=== PATIENT | male | born 1960 | race Caucasian/White ===

== ENCOUNTER → 2022-08-07 | Outpatient (CLI) | payer OTHER, SELFPAY ==
[2022-08-07 12:55] LABS: Absolute Neutrophil Count 4.6 X10^3/uL (2.0-7.7); Basophil# 0.07 X10^3/uL; Basophil% 0.9 % (0-1); Eosinophil# 0.38 X10^3/uL; Eosinophils% 4.8 % (0-5); Hemoglobin 15.2 g/dL (13.0-16.5); Lymphocyte % 27.5 % (19-41); Mean Corp Hgb Conc 32.3 g/dL (32-36); Mean Corpuscular Hgb 29.8 pg (27.0-32.0); Mean Corpuscular Volume 92.2 fL (80-94); Monocyte# 0.75 X10^3/uL; Monocyte% 9.4 % (0-10); NRBC Flagged by Analyzer 0 % (0-5); Neutrophil # 4.57 X10^3/uL (2.7-7.7); Platelet Count 308 K/mm3 (150-450); RBC Distribution Width CV 13.1 % (11.6-14.6); RBC Distribution Width SD 44.1 fl (35.1-43.9)
[2022-08-07 13:36] LABS: AST(SGOT) 24 U/L (15-37); Alanine Aminotransfer ALT/SGPT 45 U/L (16-61); Albumin, Serum 3.6 g/dL (3.2-5.0); Alkaline Phosphatase 53 U/L (45-117); Anion Gap 4 (5-15); BUN 15 mg/dL (7-18); BUN/Creat Ratio 18.1 RATIO (10-20); Chloride 109 mmol/L (98-107); Cholesterol 166 mg/dL (200); Creatinine, Serum 0.83 mg/dL (0.70-1.30); EST Glomerular Filtration Rate 100 mL/min (>60); Est Glom Filt Rate - Afr Amer 121 mL/min (>60); Globulin 3.6 g/dL (2.2-4.2); Glucose 102 mg/dL (74-106); High Density Lipoprotein 64 mg/dL; PSA,Total - Annual Screen 1.77 ng/mL (0.00-4.00); Protein, Total 7.2 g/dL (6.4-8.2); Sodium Level 139 mmol/L (136-145); Triglycerides 44 mg/dL; Very Low Density Lipoprotein 9 mg/dL (5-40)
== END | disposition home or self-care (01) ==
PROVIDERS: PCP Family Medicine; Referring Provider Family Medicine; Visit Provider Family Medicine
DX: I10 Essential (primary) hypertension (principal); Z12.5 Encounter for screening for malignant neoplasm of prostate
CPT/HCPCS: 36415; 80053; 80061; 84153; 85025; G0103

== ENCOUNTER → 2024-09-08 | Outpatient (CLI) | payer OTHER, SELFPAY ==
--- NOTE | 2024-09-08 12:36 | RAD_ITS ---
PROCEDURE: CHEST PA AND LATERAL 09/08/2024 REASON FOR EXAM: RIGHT SIDE RIB PAIN TECHNIQUE: Frontal and lateral views of the chest. COMPARISON: None available FINDINGS: The lungs are clear. Pulmonary vascularity appears within limits. No pleural effusion. The cardiac and mediastinal contours appear within limits. Visualized osseous structures appear within limits. RAD/Chest PA and Lateral IMPRESSION: No evidence of acute disease. Reading Location: [id number]
[2024-09-08 15:24] LABS: Absolute Lymphocyte Count 2.17 X10^3/uL (0.83-4.51); Absolute Neutrophil Count 6.3 X10^3/uL (2.0-7.7); Basophil# 0.06 X10^3/uL; Basophil% 0.6 % (0-1); Eosinophil# 0.25 X10^3/uL; Eosinophils% 2.6 % (0-5); Lymphocyte # 2.17 X10^3/ul (0.83-4.51); Lymphocyte % 22.6 % (19-41); Mean Corp Hgb Conc 33.3 g/dL (32-36); Mean Corpuscular Volume 89.9 fL (80-94); Mean Platelet Vol. 9.9 fl (6.2-12.0); Monocyte% 8.3 % (0-10); NRBC Flagged by Analyzer 0 % (0-5); Neutrophil # 6.26 X10^3/uL (2.7-7.7); Neutrophil % 65.4 % (47-70); Platelet Count 328 K/mm3 (150-450); RBC Distribution Width CV 13.1 % (11.6-14.6); RBC Distribution Width SD 43.3 fl (35.1-43.9); Red Blood Count 5.34 M/mm3 (4.6-6.2); White Blood Count 9.6 K/mm3 (4.4-11.0)
[2024-09-08 16:09] LABS: ALB/GLOB Ratio 1.6 RATIO (0.9-2.4); AST(SGOT) 20 U/L (<=37); Alanine Aminotransfer ALT/SGPT 32 U/L (<=46); Albumin, Serum 4.5 g/dL (3.4-4.8); Alkaline Phosphatase 77 U/L (40-129); Anion Gap 13 (5-15); BUN 16 mg/dL (4-19); BUN/Creat Ratio 19.1 RATIO (10-20); Calcium,Total 9.6 mg/dL (7.6-11.0); Carbon Dioxide 23.8 mmol/L (21.0-32.0); Chloride 103 mmol/L (98-108); Cholesterol 195 mg/dL (<=200); Creatinine, Serum 0.86 mg/dL (0.70-1.20); EST Glomerular Filtration Rate 97 (>60); Globulin 2.7 g/dL (2.2-4.2); Glucose 89 mg/dL (70-99); High Density Lipoprotein 63 mg/dL; Low Density Lipoprotein Calc. 118 mg/dL; PSA,Total - Annual Screen 2.06 ng/mL (0.02-4.00); Potassium 3.4 mmol/L (3.3-5.1); Protein, Total 7.2 g/dL (5.9-8.4); Sodium Level 141 mmol/L (133-145); Total Bilirubin 0.54 mg/dL (0.00-1.30); Triglycerides 73 mg/dL; Very Low Density Lipoprotein 15 mg/dL (5-40); cholesterol:hdl ratio screen 3.11
== END | disposition home or self-care (01) ==
PROVIDERS: PCP Family Medicine; Referring Provider Family Medicine; Visit Provider Family Medicine
DX: R07.81 Pleurodynia (principal); I10 Essential (primary) hypertension; Z12.5 Encounter for screening for malignant neoplasm of prostate
CPT/HCPCS: 36415; 71046; 80053; 80061; 84153; 85025; G0103

== ENCOUNTER → 2024-09-15 | Outpatient (CLI) | payer OTHER, SELFPAY ==
--- NOTE | 2024-09-15 10:23 | US_ITS ---
PROCEDURE: ABDOMEN LIMITED 09/15/2024 REASON FOR EXAM: RUQ PAIN TECHNIQUE: Complete abdominal ultrasound deras-scale images with color doppler. PATIENT PREPARATION: Per protocol COMPARISON: None. FINDINGS: The liver measures 16.3 cm with increased echogenicity. Left hepatic lobe 2.1 x 2.2 x 1.8 cm cysts. Hepatopetal flow. Gallbladder measures 8.6 cm with multiple mobile echogenic gallstones. Negative sonographic Rodriguez's sign. Trace pericholecystic fluid. Common bile duct measures 8 mm. The visualized pancreas is within normal limits. Right kidney measures 13.6 cm. Interpolar 9 mm and 7 mm calculi. US/Abdomen Limited IMPRESSION: Dilated common bile duct. Consider MRCP if clinically indicated. Cholelithiasis and trace pericholecystic fluid but a negative sonographic Jorge y's sign. If there is clinical concern for acute cholecystitis, consider HIDA scan. Hepatic steatosis. Right kidney nonobstructive nephrolithiasis. Left hepatic lobe cyst. Reading Location: [place] [id number]
--- OUTSIDE RECORDS SUMMARY | 2024-09-15 20:41 | XMS RPT_ITS | CCD ---
Author Organization [facility] Inform ion Partnership [facility] Care Team Providers Care Manager Pulmonary Name Role Phone Anel MOREIRAN.PACKAGE LINE RELIEF OPERATOR, DNP, Ant Primary Care Provider Buddy Posadas DO Primary Care Provider Dr. Buddy Posadas DO Primary Care Provider [phone] Dr. Xena Adrian MD Attending Provider [phone] Dr. Xena Adrian MD Referring Provider [phone] Xena Adrian Referring Unavailable Xena Adrian Attending Unavailable Buddy Posadas Primary Care Unavailable Buddy Posadas Primary Care Unavailable Xena Adrian Referring Unavailable Xena Adrian Attending Unavailable Allergies Allergy Classification Reported Allergen(s) Allergy Type Date of Onset Reaction(s) Facility (1 source) amLODIPine Drug Allergy 02-01-2020 [facility] (1 source) Doxazosin Drug Allergy 11-10-2019 [facility] (1 source) Lisinopril Drug Allergy 11-10-2019 [facility] (1 source) Penicillins Drug Allergy 05-14-2017 [facility] (2 sources) Penicillins Allergy to substance 01-28-[address] [facility] (1 source) Penicillins Drug allergy (disorder) 01-28-2016 [facility] Repository Medications Current Medications Medication Drug Class(es) Dates Sig (Normalized) Sig (Original) 24 hr buPROPion hydrochloride 300 mg extended release oral tablet (3 sources) Aminoketone Start: 01-28-20 16 take 1 tablet by mouth once daily Bupropion Hcl 300 MG tablet extended release 24 hr Active 300 mg PO DAILY January 28, 2016 12:00am Comment on above: Take 1 tablet by elsi th once daily. diazePAM 5 mg oral tablet (2 sources) Benzodiazepine Start: 01-28-20 16 take 1 tablet by mouth every eight hours as needed Diazepam 5 MG tablet Active 5 mg PO EVERY 8 HOURS as needed for Vertigo January 28, 2016 12:00am hydroCHLOROthiazide 25 mg oral tablet (2 sources) Thiazide Diuretic Start: 12-03-19 21 End: 11-21-19 23 take 1 tablet by mouth once daily hydroCHLOROthiazide (HYDRODIURIL, ESIDRIX) 25 mg tablet Indications: Benign hypertension take 1 tablet by mouth once daily 90 tablet 0 11/20/2021 11/20/2022 Active Comment on above: take 1 tablet by elsi th once daily Take 1 tablet by elsi th once daily. LORazepam 1 mg oral tablet (2 sources) Benzodiazepine Start: 01-28-20 16 take 1 tablet by mouth at bedtime Lorazepam 1 MG tablet Active 1 mg PO AT BEDTIME January 28, 2016 12:00am losartan potassium 25 mg oral tablet (1 source) Angiotensin 2 Receptor Nicholas Start: 12-03-19 End: 12-03-19 22 take 1 tablet by mouth once daily losartan (COZAAR) 25 mg tablet Indications: Benign hypertension Take 1 tablet by mouth once daily. 90 tablet 3 12/02/2020 12/02/2021 Active Comment on above: Take 1 tablet by elsi th once daily. ondansetron 4 mg disintegrating oral tablet (4 sources) Serotonin-3 Receptor Antagonist Start: 01-28-20 take 1 tablet by mouth every eight hours as needed for nausea Ondansetron 4 MG tablet Active 4 mg PO EVERY 8 HOURS NEEDED as needed for Nausea January 28, 2016 12:00am Start: 01-28-2016 Ondansetron 4 MG tablet Active 8 mg PO NEEDED as needed for Nausea January 28, 2016 12:00am Start: 01-28-2016 Ondansetron Ac tive 8 MG PO NEEDED January 28, 2016 12:00am Completed/Discontinued Medications Medication Drug Class(es) Dates Sig (Normalized) Sig (Original) azelaic acid 0.15 mg/mg topical gel (1 source) Start: 07-28-2020 Azelaic Acid 15 % gel Indications: Rosacea Apply to affected area twice daily. 50 g 3 07/28/2020 Active Comment on above: Apply to affected ar ea twice daily. clotrimazole 10 mg/ml topical cream (1 source) Azole Antifungal Start: 07-28-2020 clotrimazole (LOTRIMIN, CLOTRIM) 1 % cream Apply to affected area twice daily. 24 g 1 07/28/2020 Active Comment on above: Apply to affected ar ea twice daily. CPAP (1 source) Start: 07-14-2020 CPAP Indications: HUMA (obstructive sleep apnea) Initiate Auto PAP @ 5-20 cm of water with humidification. Mask (per patient preference) optional chin strap (if indicated) , filters, tubing, humidifier and lifetime supplies. 1 Device 0 07/14/2020 Active Comment on above: Initiate Auto PAP @ 5-20 cm of water with humidification. Mask (per patient preference) optional chin strap (if indicated) , filters, tubing, humidifier and lifetime supplies. ibuprofen 200 mg oral tablet (1 source) Nonsteroidal Anti-inflammatory Drug ibuprofen (MOTRIN IB) 200 mg ORAL tablet Take 200 mg by mouth. 0 Active Comment on above: Take 200 mg by mouth . promethazine hydrochloride 25 mg oral tablet (1 source) Phenothiazine Start: 11-10-2019 take 1 tablet by mouth every eight hours as needed promethazine (PHENERGAN) 25 mg tablet Take 1 tablet by mouth every 8 hours as needed for Nausea/Vomiting. 20 tablet 1 11/10/2019 Active Comment on above: Take 1 tablet by elsi th every 8 hours as needed for Nausea/Vomiting. Problems Active Problems Problem Classification Problem Date Documented Da te Episodic/Chronic Abdominal pain (1 source) Right upper quadrant pain; Translations: [Right upper quadrant pain] Onset: 09-10-2024 Episodic Anxiety disorders (2 sources) Anxiety; Translations: [Anxiety disorder, unspecified] Onset: 12-06-2017 12-06-2017 Chronic Essential hypertension (2 sources) Benign hypertension; Translations: [Essential (primary) hypertension] Onset: 05-14-2017 Chronic Hyperplasia of prostate (1 source) Benign prostatic hypertrophy with outflow obstruction; Translations: [Benign prostatic hyperplasia with lower urinary tract symptoms] Onset: 05-14-2017 05-14-2017 Chronic Miscellaneous mental health disorders (1 source) Chronic insomnia; Translations: [Psychophysiologic insomnia] Onset: 02-20-2018 02-20-2018 Chronic Other inflammatory condition of skin (1 source) Rosacea; Translations: [Rosacea, unspecified] Onset: 10-10-2018 10-10-2018 Chronic Other lower respiratory disease (1 source) Pleurodynia; Translations: [Pleurodynia] Onset: 09-12-2024 Episodic Residual codes; unclassified (1 source) Obstructive sleep apnea syndrome; Translations: [Obstructive sleep apnea (adult) (pediatric)] Onset: 02-20-2018 02-20-2018 Chronic Past or Other Problems Problem Classification Problem Date Documented Da te Episodic/Chronic Other and unspecified benign neoplasm (1 source) Benign neoplasm of rectum and anal canal; Translations: [Benign neoplasm of rectum] Onset: 06-11-2011 06-11-2011 Episodic Other connective tissue disease (1 source) Dupuytren's contracture; Translations: [Palmar fascial fibromatosis [Dupuytren]] Onset: 07-28-2020 07-28-2020 Episodic Other screening for suspected conditions (not mental disorders or infectious disease) (1 source) Patient encounter status; Translations: [Encounter for screening for malignant neoplasm of colon] Onset: 05-14-2011 05-14-2011 Episodic Other skin disorders (1 source) Subcutaneous nodule; Translations: [Localized swelling, mass and lump, unspecified] Onset: 04-23-2011 04-23-2011 Episodic Results Test Name Value Interpretation Reference Range Facility Absolute lymphocyte countOrd ered By: Xena Adrian on 09-08-2024 Lymphocytes Auto (Unsp spec) [#/Vol] 2.17 10*3/uL 0.83-4.51 [facility] Absolute neutrophil countOrd ered By: Xena Adrian on 09-08-2024 Neutrophils (Bld) [#/Vol] 6.3 10*3/uL 2.0-7.7 [facility] Anion gap in Serum or Plasma Ordered By: Xena Adrian on 09-08-2024 Anion gap [Moles/Vol] 13 mmol/L -15 [facility] Automated lymphocyte count a s percentage of total leukocytesOrdered By: Xena Adrian on 09-08-2024 Lymphocytes/100 WBC Auto (Unsp spec) 22.6 % 19-41 [facility] BUN/creatinine ratioOrdered By: Xena Adrian on 09-08-2024 Urea nitrogen/Creatinine [Mass ratio] 19.1 mg/mg 10-20 [facility] Basophil percentageOrdered B y: Xnea Adrian on 09-08-2024 Basophils/100 WBC (Bld) 0.6 % 0-1 [facility] Bilirubin, totalOrdered By: Xena Adrian on 09-08-2024 Bilirubin [Mass/Vol] 0.54 mg/dL 0.00-1.30 [facility] CBC W/Diff, Automatedon 08-14 Absolute Lymph 2.17 X10 3/uL Normal 0.83-4.51 [facility] Comment on above: Performed By: #### L 501.9910, L100.0100, L500.4050, L500.4100 #### [facility] [address] [place], [address] Absolute Neut 6.3 X10 3/uL Normal 2.0-7.7 [facility] Comment on above: Performed By: #### L 501.9910, L100.0100, L500.4050, L500.4100 #### [facility] [address] [place], [address] Basophils/100 WBC (Bld) 0.6 % Normal 0-1 [facility] Comment on above: Performed By: #### L 501.9910, L100.0100, L500.4050, L500.4100 #### [facility] [address] [place], [address] Eosinophils/100 WBC (Bld) 2.6 % Normal 0-5 [facility] Comment on above: Performed By: #### L 501.9910, L100.0100, L500.4050, L500.4100 #### [facility] [address] [place], [address] Erythrocyte distribution width (RBC) [Ratio] 13.1 % Normal 11.6-14.6 [facility] Comment on above: Performed By: #### L 501.9910, L100.0100, L500.4050, L500.4100 #### [facility] [address] [place], [address] Hematocrit (Bld) [Volume fraction] 48.0 % Normal 40-54 [facility] Comment on above: Performed By: #### L 501.9910, L100.0100, L500.4050, L500.4100 #### [facility] [address] [place], [address] Hemoglobin (Bld) [Mass/Vol] 16.0 g/dL Normal 13.0-16.5 [facility] Comment on above: Performed By: #### L 501.9910, L100.0100, L500.4050, L500.4100 #### [facility] [address] [place], [address] IG% 0.500 Normal 0.0-0.9 [facility] Comment on above: Result Comment: IG% - Immature Granulocytes (promyelocytes, myelocytes and metamyelocytes) > 1% indicates that a LEFT SHIFT is Present. Performed By: #### L 501.9910, L100.0100, L500.4050, L500.4100 #### [facility] [address] [place], [address] Lymphocytes/100 WBC (Bld) 22.6 % Normal 19-41 [facility] Comment on above: Performed By: #### L 501.9910, L100.0100, L500.4050, L500.4100 #### [facility] [address] [place], [address] MCH (RBC) [Entitic mass] 30.0 pg Normal 27.0-32.0 [facility] Comment on above: Performed By: #### L 501.9910, L100.0100, L500.4050, L500.4100 #### [facility] [address] [place], [address] MCHC (RBC) [Mass/Vol] 33.3 g/dL Normal 32-36 [facility] Comment on above: Performed By: #### L 501.9910, L100.0100, L500.4050, L500.4100 #### [facility] [address] [place], [address] MCV (RBC) [Entitic vol] 89.9 fL Normal 80-94 [facility] Comment on above: Performed By: #### L 501.9910, L100.0100, L500.4050, L500.4100 #### [facility] [address] [place], [address] Monocytes/100 WBC (Bld) 8.3 % Normal 0-10 [facility] Comment on above: Performed By: #### L 501.9910, L100.0100, L500.4050, L500.4100 #### [facility] [address] [place], [address] Neutrophils/100 WBC (Bld) 65.4 % Normal 47-70 [facility] Comment on above: Performed By: #### L 501.9910, L100.0100, L500.4050, L500.4100 #### [facility] [address] [place], [address] Nucleated RBC (Bld) [#/Vol] 0 10*3/uL Normal 0-5 [facility] Comment on above: Performed By: #### L 501.9910, L100.0100, L500.4050, L500.4100 #### [facility] [address] [place], [address] Platelet mean volume (Bld) [Entitic vol] 9.9 fL Normal 6.2-12.0 [facility] Comment on above: Performed By: #### L 501.9910, L100.0100, L500.4050, L500.4100 #### [facility] [address] [place], [address] Platelets (Bld) [#/Vol] 328 10*3/uL Normal 150-450 [facility] Comment on above: Performed By: #### L 501.9910, L100.0100, L500.4050, L500.4100 #### [facility] [address] [place], [address] RBC (Bld) [#/Vol] 5.34 10*6/uL Normal 4.6-6.2 [facility] Comment on above: Performed By: #### L 501.9910, L100.0100, L500.4050, L500.4100 #### [facility] [address] [place], [address] RDW SD 43.3 fl Normal 35.1-43.9 [facility] Comment on above: Performed By: #### L 501.9910, L100.0100, L500.4050, L500.4100 #### [facility] [address] [place], [address] WBC (Bld) [#/Vol] 9.6 10*3/uL Normal 4.4-11.0 [facility] Comment on above: Performed By: #### L 501.9910, L100.0100, L500.4050, L500.4100 #### [facility] [address] [place], [address] Calculated very low density lipoprotein (VLDL) cholesterol measurementOrdered By: Xena Adrian on 09-08-2024 Calculated very low density lipoprotein (VLDL) cholesterol measurement 15 mg/dL 5-40 [facility] Carbon dioxide, total [Moles /volume] in Central venous bloodOrdered By: Xena Adrian on 09-08-2024 CO2 [Moles/Vol] 23.8 mmol/L 21.0-32.0 [facility] Chest PA and Lateralon 09-08 Chest PA and Lateral [facility] Services [address] [place], [place] [address] Chest PA and Lateral MR#: [id number] Acct: [id number] Name: RDAKE DAY Rep #: [id number] : 1960 M 64 From: Bentley Rodrigues MD PCP: Dr. Buddy Posadas, Status: REG CLI Study: Chest PA and Lateral Date of Exam: 09/08/24 Exam# [id number] Ordering Dr: Xena Adrian MD PROCEDURE: CHEST PA AND LATERAL 09/08/2024 REASON FOR EXAM: RIGHT SIDE RIB PAIN TECHNIQUE: Frontal and lateral views of the chest. COMPARISON: None available FINDINGS: The lungs are clear. Pulmonary vascularity appears within limits. No pleural effusion. The cardiac and mediastinal contours appear within limits. Visualized osseous structures appear within limits. RAD/Chest PA and Lateral IMPRESSION: No evidence of acute disease. Reading Location: [facility] CC: Dr. Xena Adrian MD; Dr. Buddy Posadas DO Medical Collections Representative: Signed Normal [facility] Chloride assayOrdered By: Rohit Adrian on 09-08-2024 Chloride [Moles/Vol] 103 mmol/L 98-108 [facility] Comprehensive Metabolic Prof ilon 09-08-2024 Albumin [Mass/Vol] 4.5 g/dL Normal 3.4-4.8 [facility] Comment on above: Performed By: #### L 501.9910, L100.0100, L500.4050, L500.4100 #### [facility] [address] [place], [address] Albumin/Globulin [Mass ratio] 1.6 {ratio} Normal 0.9-2.4 [facility] Comment on above: Performed By: #### L 501.9910, L100.0100, L500.4050, L500.4100 #### [facility] [address] [place], [address] ALK PHOS 77 U/L Normal 40-129 [facility] Comment on above: Performed By: #### L 501.9910, L100.0100, L500.4050, L500.4100 #### [facility] [address] [place], [address] ALT [Catalytic activity/Vol] 32 U/L Normal <=46 [facility] Comment on above: Performed By: #### L 501.9910, L100.0100, L500.4050, L500.4100 #### [facility] [address] [place], [address] AST [Catalytic activity/Vol] 20 U/L Normal <=37 [facility] Comment on above: Performed By: #### L 501.9910, L100.0100, L500.4050, L500.4100 #### [facility] [address] [place], [address] Bilirubin [Mass/Vol] 0.54 mg/dL Normal 0.00-1.30 [facility] Comment on above: Performed By: #### L 501.9910, L100.0100, L500.4050, L500.4100 #### [facility] [address] [place], [address] BUN/CRE 19.1 RATIO Normal 10-20 [facility] Comment on above: Performed By: #### L 501.9910, L100.0100, L500.4050, L500.4100 #### [facility] [address] [place], [address] Calcium [Mass/Vol] 9.6 mg/dL Normal 7.6-11.0 [facility] Comment on above: Performed By: #### L 501.9910, L100.0100, L500.4050, L500.4100 #### [facility] [address] [place], [address] Chloride [Moles/Vol] 103 mmol/L Normal 98-108 [facility] Comment on above: Performed By: #### L 501.9910, L100.0100, L500.4050, L500.4100 #### [facility] [address] [place], [address] CO2 [Moles/Vol] 23.8 mmol/L Normal 21.0-32.0 [facility] Comment on above: Performed By: #### L 501.9910, L100.0100, L500.4050, L500.4100 #### [facility] [address] [place], [address] Creatinine [Mass/Vol] 0.86 mg/dL Normal 0.70-1.20 [facility] Comment on above: Performed By: #### L 501.9910, L100.0100, L500.4050, L500.4100 #### [facility] [address] [place], [address] GAP 13 Normal 5-15 [facility] Comment on above: Performed By: #### L 501.9910, L100.0100, L500.4050, L500.4100 #### [facility] [address] [place], [address] GFR/1.73 sq M.predicted among non-blacks MDRD (S/P/Bld) [Vol rate/Area] 97 mL/min/{1.73_m2} Normal >60 [facility] Comment on above: Result Comment: mL/m in/1.73m2 CKD-EPI Creatinine Equation (2020) Performed By: #### L 501.9910, L100.0100, L500.4050, L500.4100 #### [facility] [address] [place], [address] Globulin (S) [Mass/Vol] 2.7 g/dL Normal 2.2-4.2 [facility] Comment on above: Performed By: #### L 501.9910, L100.0100, L500.4050, L500.4100 #### [facility] [address] [place], [address] Glucose [Mass/Vol] 89 mg/dL Normal 70-99 [facility] Comment on above: Performed By: #### L 501.9910, L100.0100, L500.4050, L500.4100 #### [facility] [address] [place], [address] Potassium [Moles/Vol] 3.4 mmol/L Normal 3.3-5.1 [facility] Comment on above: Performed By: #### L 501.9910, L100.0100, L500.4050, L500.4100 #### [facility] [address] [place], [address] Sodium [Moles/Vol] 141 mmol/L Normal 133-145 [facility] Comment on above: Performed By: #### L 501.9910, L100.0100, L500.4050, L500.4100 #### [facility] [address] [place], [address] T PROT 7.2 g/dL Normal 5.9-8.4 [facility] Comment on above: Performed By: #### L 501.9910, L100.0100, L500.4050, L500.4100 #### [facility] [address] [place], [address] Urea nitrogen [Mass/Vol] 16 mg/dL Normal 4-19 [facility] Comment on above: Performed By: #### L 501.9910, L100.0100, L500.4050, L500.4100 #### [facility] [address] [place], [place], [id number] Eosinophil percentageOrdered By: Xena Adrian on 09-08-2024 Eosinophils/100 WBC (Bld) 2.6 % 0-5 [facility] Erythrocyte distribution wid th ratioOrdered By: Xena Adrian on 09-08-2024 Erythrocyte distribution width (RBC) [Ratio] 13.1 % 11.6-14.6 [facility] Erythrocyte distribution wid th standard deviationOrdered By: Xena Adrian on 09-08-2024 Erythrocyte distribution width (RBC) [Ratio] 43.3 fl 35.1-43.9 [facility] Glomerular filtration rate ( GFR) estimation/1.73 sq m using serum, plasma, or whole bOrdered By: Xena Adrian on 09-08-2024 GFR/1.73 sq M.predicted among non-blacks MDRD (S/P/Bld) [Vol rate/Area] 97 mL/min/{1.73_m2} >60 [facility] Comment on above: mL/min/1.73m2 CKD-EP I Creatinine Equation (2020) Hematocrit Auto (Bld) [Volum e fraction]Ordered By: Xena Adrian on 09-08-2024 Hematocrit (Bld) [Volume fraction] 48.0 % 40-54 [facility] Hemoglobin measurementOrdere d By: Xena Adrian on 09-08-2024 Hemoglobin (Bld) [Mass/Vol] 16.0 g/dL 13.0-16.5 [facility] Immature granulocytes/100 WB C Auto (Bld)Ordered By: Xena Adrian on 09-08-2024 Immature granulocytes/100 WBC (Bld) 0.500 % 0.0-0.9 [facility] Comment on above: IG% - Immature Granu locytes (promyelocytes, myelocytes and metamyelocytes) > 1% indicates that a LEFT SHIFT is Present. LDL calc ser/plasOrdered By: Xena Adrian on 09-08-2024 Cholesterol in LDL [Mass/Vol] 118 mg/dL [facility] Comment on above: Tovclqjwff=258-455 m g/dL & Higher Smjb=216 mg/dL or greater Laboratory - Chemistry and C hemistry - challengeOrdered By: Xena Adrian on 09-08-2024 AST [Catalytic activity/Vol] 20 U/L <38 [facility] Lipid Profileon 09-08-2024 CHOL:HDL 3.11 Normal [facility] Comment on above: Performed By: #### L 501.9910, L100.0100, L500.4050, L500.4100 #### [facility] [address] [place], [address] Cholesterol [Mass/Vol] 195 mg/dL Normal <=200 [facility] Comment on above: Result Comment: Chol esterol level, Desirable <200 mg/dL Borderline high cholesterol 200-239 mg/dL High cholesterol >=240 mg/dL Recommendations of the NCEP Adult Treatment Panel for the following risk-cutoff thresholds for the [place] population. Performed By: #### L 501.9910, L100.0100, L500.4050, L500.4100 #### [facility] [address] [place], [address] Cholesterol in HDL [Mass/Vol] 63 mg/dL Normal [facility] Comment on above: Result Comment: [place] onal Cholesterol Education Program (NCEP) guidelines: <40 mg/dL: Low HDL-cholesterol (major risk factor for CHD) >= 60 mg/dL: High HDL-cholesterol (negative risk factor for CHD) HDL-cholesterol is affected by a number of factors, e.g. smoking, exercise, hormones, sex and age. Performed By: #### L 501.9910, L100.0100, L500.4050, L500.4100 #### [facility] [address] [place], [address] Cholesterol in LDL [Mass/Vol] 118 mg/dL Normal [facility] Comment on above: Result Comment: Bord ljcsrs=928-517 mg/dL Higher Zxkf=368 mg/dL or greater Performed By: #### L 501.9910, L100.0100, L500.4050, L500.4100 #### [facility] [address] [place], [address] Cholesterol in VLDL [Mass/Vol] 15 mg/dL Normal 5-40 [facility] Comment on above: Performed By: #### L 501.9910, L100.0100, L500.4050, L500.4100 #### [facility] [address] [place], [address] Triglyceride [Mass/Vol] 73 mg/dL Normal [facility] Comment on above: Result Comment: The drugs N-Acetylcysteine and Metamizole may falsely depress this assay. Normal range: <150 mg/dL Borderline High: 150-199 mg/dL High: 200-499 mg/dL Very High: >500 mg/dL Performed By: #### L 501.9910, L100.0100, L500.4050, L500.4100 #### [facility] [address] [place], [address] MCV (mean corpuscular volume ) determinationOrdered By: Xena Adrian on 09-08-2024 MCV (RBC) [Entitic vol] 89.9 fL 80-94 [facility] Mean corpuscular hemoglobin (MCH) determinationOrdered By: Xena Adrian on 09-08-2024 MCH (RBC) [Entitic mass] 30.0 pg 27.0-32.0 [facility] Mean corpuscular hemoglobin concentration (MCHC) determinationOrdered By: Xena Adrian on 09-08-2024 MCHC (RBC) [Mass/Vol] 33.3 g/dL 32-36 [facility] Mean platelet volume determi nationOrdered By: Xena Adrian on 09-08-2024 Platelet mean volume (Bld) [Entitic vol] 9.9 fL 6.2-12.0 [facility] Monocyte percentageOrdered B y: Xena Adrian on 09-08-2024 Monocytes/100 WBC (Bld) 8.3 % 0-10 [facility] Neutrophil percentageOrdered By: Xena Adrian on 09-08-2024 Neutrophils/100 WBC (Bld) 65.4 % 47-70 [facility] Nucleated red blood cell per centageOrdered By: Xena Adrian on 09-08-2024 Nucleated RBC/100 WBC (Bld) [Ratio] 0 % 0-5 [facility] PSA,Total - Annual Screenon 09-08-2024 PSA,TOT SCREEN 2.06 ng/mL Normal 0.02-4.00 [facility] Comment on above: Result Comment: This test was performed using the [employer] tPSA method. Measured values of a patient??sample can vary depending on the testing procedure used. PSA values determined on patient samples by different testing procedures cannot be used interchangeably. If there is a change in PSA assays while monitoring therapy, sequential testing should be performed to confirm baseline values. Performed By: #### L 501.9910, L100.0100, L500.4050, L500.4100 #### [facility] [address] [place], [address] Platelet countOrdered By: Rohit Adrian on 09-08-2024 Platelets (Bld) [#/Vol] 328 10*3/uL 150-450 [facility] Potassium measurement (mass/ volume)Ordered By: Xena Adrian on 09-08-2024 Potassium (Unsp spec) [Mass/Vol] 3.4 mmol/L 3.3-5.1 [facility] RBC Auto (Bld) [#/Vol]Ordere d By: Xena Adrian on 09-08-2024 RBC (Bld) [#/Vol] 5.34 10*6/uL 4.6-6.2 [facility] Screening total cholesterol/ high density lipoprotein (HDL) cholesterol ratioOrdered By: Xena Adrian on 09-08-2024 Cholesterol.total/Choles terol in HDL [Mass ratio] 3.11 {ratio} [facility] Serum creatinine measurement (mass/volume)Ordered By: Xena Adrian on 09-08-2024 Creatinine [Mass/Vol] 0.86 mg/dL 0.70-1.20 [facility] Serum globulin measurementOr dered By: Xena Adrian on 09-08-2024 Globulin (S) [Mass/Vol] 2.7 g/dL 2.2-4.2 [facility] Serum glucose measurement (m ass/volume)Ordered By: Xena Adrian on 09-08-2024 Glucose [Mass/Vol] 89 mg/dL 70-99 [facility] Serum or plasma alanine meadows otransferase (ALT) measurementOrdered By: Xena Adrian on 09-08-2024 ALT [Catalytic activity/Vol] 32 U/L <47 [facility] Serum or plasma albumin wolf urement (mass/volume)Ordered By: Xena Adrian on 09-08-2024 Albumin [Mass/Vol] 4.5 g/dL 3.4-4.8 [facility] Serum or plasma albumin/glob ulin mass ratioOrdered By: Xena Adrian on 09-08-2024 Albumin/Globulin [Mass ratio] 1.6 {ratio} 0.9-2.4 [facility] Serum or plasma alkaline german sphatase measurementOrdered By: Xena Adrian on 09-08-2024 ALP [Catalytic activity/Vol] 77 U/L 40-129 [facility] Serum or plasma calcium wolf urement (mass/volume)Ordered By: Xena Adrian on 09-08-2024 Calcium [Mass/Vol] 9.6 mg/dL 7.6-11.0 [facility] Serum or plasma cholesterol in HDL measurement (mass/volume)Ordered By: Xena Adrian on 09-08-2024 Cholesterol in HDL [Mass/Vol] 63 mg/dL >40 [facility] Comment on above: National Cholesterol Education Program (NCEP) guidelines:<40 mg/dL: Low HDL-cholesterol (major risk factor for CHD)>= 60 mg/dL: High HDL-cholesterol (negative risk factor for CHD)HDL-cholesterol is affected by a number of factors, e.g. smoking, exercise, hormones, sex and age. Serum or plasma cholesterol measurement (mass/volume)Ordered By: Xena Adrian on 09-08-2024 Cholesterol [Mass/Vol] 195 mg/dL <201 [facility] Comment on above: Cholesterol level, D esirable <200 mg/dLBorderline high cholesterol 200-239 mg/dLHigh cholesterol >=240 mg/dLRecommendations of the NCEP Adult Treatment Panel for the following risk-cutoff thresholds for the [place] Citizen [place] population. Serum or plasma urea nitroge n measurement (mass/volume)Ordered By: Xena Adrian on 09-08-2024 Urea nitrogen [Mass/Vol] 16 mg/dL 4-19 [facility] Sodium levelOrdered By: Lul Adrian on 09-08-2024 Sodium [Moles/Vol] 141 mmol/L 133-145 [facility] Total proteinOrdered By: Supa Adrian on 09-08-2024 Protein [Mass/Vol] 7.2 g/dL 5.9-8.4 [facility] Triglycerides measurementOrd ered By: Xena Adrian on 09-08-2024 Triglyceride [Mass/Vol] 73 mg/dL <199 [facility] Comment on above: The drugs N-Acetylcy steine and Metamizole may falsely depress this assay. Normal range: <150 mg/dLBorderline High: 150-199 mg/dLHigh: 200-499 mg/dLVery High: >500 mg/dL White blood cell (WBC) count Ordered By: Xena Adrian on 09-08-2024 WBC (Bld) [#/Vol] 9.6 10*3/uL 4.4-11.0 [facility] Absolute lymphocyte countOrd ered By: Dr. Posadas on 08-07-2022 Lymphocytes Auto (Unsp spec) [#/Vol] 2.20 10*3/uL 0.83-4.51 [facility] Basophil percentageOrdered B y: Dr. Posadas on 08-07-2022 Basophils/100 WBC (Bld) 0.9 % 0-1 [facility] Bilirubin [Mass/Vol] 0.30 mg/dL 0.20-1.00 [facility] Comment on above: For patients on eltr ombopag therapy, use of Dimension [place] TBIL is not recommended. Chloride [Moles/Vol] 109 mmol/L 98-107 [facility] Cholesterol [Mass/Vol] 166 mg/dL <200 [facility] Comment on above: <200 mg/dL Desirable 200-240 mg/dL Borderline >240 mg/dL High Risk Eosinophils/100 WBC (Bld) 4.8 % 0-5 [facility] Glucose [Mass/Vol] 102 mg/dL 74-106 [facility] Comment on above: Fasting Glucose resu lt from 100 to 125 mg/dL suggests IMPAIRED HOMEOSTASIS per A.D.A. criteria. Neutrophils (Bld) [#/Vol] 4.6 10*3/uL 2.0-7.7 [facility] Neutrophils/100 WBC (Bld) 57.0 % 47-70 [facility] Potassium [Moles/Vol] 4.0 mmol/L 3.5-5.1 [facility] Protein [Mass/Vol] 7.2 g/dL 6.4-8.2 [facility] Sodium [Moles/Vol] 139 mmol/L 136-145 [facility] Triglyceride [Mass/Vol] 44 mg/dL <199 [facility] Comment on above: The drugs N-Acetylcy steine and Metamizole may falsely depress this assay.Serum Triglycerides Reference Interval Normal <150 mg/dL Borderline high 150 - 199 mg/dL High 200 - 499 mg/dL Very High > or = 500 mg/dL WBC (Bld) [#/Vol] 8.0 10*3/uL 4.4-11.0 [facility] Blood erythrocytes count (nu mber/volume)Ordered By: Dr. Posadas on 08-07-2022 RBC (Bld) [#/Vol] 5.10 10*6/uL 4.6-6.2 [facility] Blood hemoglobin measurement (mass/volume)Ordered By: Dr. Posadas on 08-07-2022 Hemoglobin (Bld) [Mass/Vol] 15.2 g/dL 13.0-16.5 [facility] Blood lymphocytes/100 leukoc ytesOrdered By: Dr. Posadas on 08-07-2022 Lymphocytes/100 WBC (Bld) 27.5 % 19-41 [facility] Blood monocytes/100 leukocyt esOrdered By: Dr. Posadas on 08-07-2022 Monocytes/100 WBC (Bld) 9.4 % 0-10 [facility] Blood platelet mean volumeOr dered By: Dr. Posadas on 08-07-2022 Platelet mean volume (Bld) [Entitic vol] 10.0 fL 6.2-12.0 [facility] Determination of erythrocyte mean corpuscular volume (MCV)Ordered By: Dr. Posadas on 08-07-2022 MCV (RBC) [Entitic vol] 92.2 fL 80-94 [facility] Hematocrit Auto (Bld) [Volum e fraction]Ordered By: Dr. Posadas on 08-07-2022 Hematocrit (Bld) [Volume fraction] 47.0 % 40-54 [facility] - Chemistry and C hemistry - challengeOrdered By: Dr. Posadas on 08-07-2022 ALP [Catalytic activity/Vol] 53 U/L 45-117 [facility] ALT [Catalytic activity/Vol] 45 U/L 16-61 [facility] CO2 [Moles/Vol] 26.0 mmol/L 21.0-32.0 [facility] Globulin (S) [Mass/Vol] 3.6 g/dL 2.2-4.2 [facility] Urea nitrogen/Creatinine [Mass ratio] 18.1 mg/mg 10-20 [facility] - Hematology and Cell countsOrdered By: Dr. Posadas on 08-07-2022 Erythrocyte distribution width (RBC) [Entitic vol] 44.1 fL 35.1-43.9 [facility] Erythrocyte distribution width (RBC) [Ratio] 13.1 % 11.6-14.6 [facility] Immature granulocytes/100 WBC (Bld) 0.400 % 0.0-0.9 [facility] Comment on above: IG% - Immature Granu locytes (promyelocytes, myelocytes and metamyelocytes) > 1% indicates that a LEFT SHIFT is Present. MCH (RBC) [Entitic mass] 29.8 pg 27.0-32.0 [facility] Nucleated RBC/100 WBC (Bld) [Ratio] 0 % 0-5 [facility] MCHC Auto (RBC) [Mass/Vol]Or dered By: Dr. Posadas on 08-07-2022 MCHC (RBC) [Mass/Vol] 32.3 g/dL 32-36 [facility] No Panel InformationOrdered By: Dr. Posadas on 08-07-2022 Estimated GFR (MDRD) Amer 121 mL/min >60 [facility] Comment on above: GFR Calc Estimated GFR (MDRD) Non-Af Amer 100 mL/min >60 [facility] Comment on above: Non- GFR Calc Prostate Specific Antigen Screen 1.77 ng/mL 0.00-4.00 [facility] Comment on above: This test was perfor med using the TPSA assay method for [employer] chemistry system. Values obtained with differentassay methods cannot be used interchangably.When changing PSA assays in the course of monitoring apatient, additional sequential testing should be carriedout to confirm baseline values. Platelets bldOrdered By: Dr. Posadas on 08-07-2022 Platelets (Bld) [#/Vol] 308 10*3/uL 150-450 [facility] Serum or plasma albumin wolf urement (mass/volume)Ordered By: Dr. Posadas on 08-07-2022 Albumin [Mass/Vol] 3.6 g/dL 3.2-5.0 [facility] Serum or plasma albumin/glob ulin mass ratioOrdered By: Dr. Posadas on 08-07-2022 Albumin/Globulin [Mass ratio] 1.0 {ratio} 0.9-2.4 [facility] Serum or plasma calcium wolf urement (mass/volume)Ordered By: Dr. Posadas on 08-07-2022 Calcium [Mass/Vol] 9.0 mg/dL 8.5-10.1 [facility] Serum or plasma cholesterol in HDL measurement (mass/volume)Ordered By: Dr. Posadas on 08-07-2022 Cholesterol in HDL [Mass/Vol] 64 mg/dL >40 [facility] Comment on above: The drugs N-Acetylcy steine and Metamizole may falsely depress this assay. Reference Range HDL <40 mg/dL Low HDL Cholesterol HDL >or= 60 mg/dL High HDL Cholesterol Serum or plasma cholesterol in VLDL measurement (mass/volume)Ordered By: Dr. Posadas on 08-07-2022 Cholesterol in VLDL [Mass/Vol] 9 mg/dL 5-40 [facility] Serum or plasma creatinine m easurement (mass/volume)Ordered By: Dr. Posadas on 08-07-2022 Creatinine [Mass/Vol] 0.83 mg/dL 0.70-1.30 [facility] Comment on above: The validity of the calculated GFR & GFRAA in patients over 70 years has not been determined. Clinical correlation is essential. Serum or plasma low density lipoprotein (LDL) cholesterol measurement (mass/volume)Ordered By: Dr. Posadas on 08-07-2022 Cholesterol in LDL [Mass/Vol] 93 mg/dL 0-130 [facility] Serum or plasma urea nitroge n measurement (mass/volume)Ordered By: Dr. Posadas on 08-07-2022 Urea nitrogen [Mass/Vol] 15 mg/dL 7-18 [facility] Thin prep Papanicolaou smear with manual screeningOrdered By: Dr. Posadas on 08-07-2022 Thin prep Papanicolaou smear with manual screening 24 U/L 15-37 [facility] Thin prep Papanicolaou smear with manual screening 4 5-15 [facility] OBSOLETEon 01-27-2021 OBSOLETE Refill (JATINDER) DRAKE DAY ([id number]) 1960 M Date Time Provider Department 01/27/21 ANT TAM During your visit today, we recorded the following information about you: Lesley Benedict 01/27/2021 3:52 PM Signed Patient has been identified by name and date of : Yes Pending Prescriptions Disp Refills LORAZEPAM 1 MG TABLET 30 tablet 0 Sig: Take 1 tablet by mouth at bedtime as needed for anxiety for up to 30 days. JOSE F Class: C-IV BELEN: No RX INSTRUCTIONS: Patient aware RX will be sent to pharmacy. No need to notify patient. Lesley Perez 01/27/2021 4:21 PM Signed Last visit: 12/02/2020 Next visit: No future appointments Ant Tam APRN.CNP, DNP 01/27/2021 4:26 PM Signed PDMP website checked and validated 01/27/2021 All prescriptions have been APPROPRIATELY filled. No suspicious activity was identified. The following approved medication requests have been transmitted electronically. Pending Prescriptions Disp Refills LORAZEPAM 1 MG TABLET 30 tablet 0 Sig: Take 1 tablet by mouth at bedtime as needed for anxiety for up to 30 days. 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 - losartan (COZAAR) 25 mg tablet Take 1 tablet by mouth once daily. - hydroCHLOROthiazide (HYDRODIURIL, ESIDRIX) 25 mg tablet Take 1 tablet by mouth once daily. - Azelaic Acid 15 % gel Apply to affected area twice daily. - clotrimazole (LOTRIMIN, CLOTRIM) 1 % cream Apply to affected area twice daily. - CPAP Initiate Auto PAP @ 5-20 cm of water with humidification. Mask (per patient preference) optional chin strap (if indicated) , filters, tubing, humidifier and lifetime supplies. - buPROPion XL (WELLBUTRIN XL) 300 mg 24 hr tablet Take 1 tablet by mouth once daily. - promethazine (PHENERGAN) 25 mg tablet Take 1 tablet by mouth every 8 hours as needed for Nausea/Vomiting. - ibuprofen (MOTRIN IB) 200 mg ORAL tablet Take 200 mg by mouth. 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 Medications Discontinued During This Encounter Prescriptions - LORazepam (ATIVAN) 1 mg tablet (Discontinued) Take 1 tablet by mouth at bedtime as needed for anxiety for up to 30 days. Encounter Status:Closed by ANT TAM on 01/27/21 [facility] OBSOLETEon 12-30-2020 OBSOLETE Refill (FAMPST) DRAKE DAY ([id number]) 1960 M Date Time Provider Department 12/30/20 ANT TAM During your visit today, we recorded the following information about you: Lesley Preeti [facility] 12/30/2020 9:27 AM Signed Patient has been identified by name and date of : Yes Pending Prescriptions Disp Refills LORAZEPAM 1 MG TABLET 30 tablet 0 Sig: Take 1 tablet by mouth at bedtime as needed for anxiety for up to 30 days. JOSE F Class: C-IV BELEN: No RX INSTRUCTIONS: Patient aware RX will be sent to pharmacy. No need to notify patient. [facility] 12/30/2020 10:09 AM Signed Last OV: 12/02/2020 Next OV: N/A Last refill: Lorazepam 1mg 12/02/2020, #30 with no refills Ant Tam APRN.NATALY SCHUSTER 12/30/2020 4:07 PM Signed PDMP website checked and validated 12/30/2020 All prescriptions have been APPROPRIATELY filled. No suspicious activity was identified. The following approved medication requests have been transmitted electronically. Pending Prescriptions Disp Refills LORAZEPAM 1 MG TABLET 30 tablet 0 Sig: Take 1 tablet by mouth at bedtime as needed for anxiety for up to 30 days. 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 - losartan (COZAAR) 25 mg tablet Take 1 tablet by mouth once daily. - hydroCHLOROthiazide (HYDRODIURIL, ESIDRIX) 25 mg tablet Take 1 tablet by mouth once daily. - Azelaic Acid 15 % gel Apply to affected area twice daily. - clotrimazole (LOTRIMIN, CLOTRIM) 1 % cream Apply to affected area twice daily. - CPAP Initiate Auto PAP @ 5-20 cm of water with humidification. Mask (per patient preference) optional chin strap (if indicated) , filters, tubing, humidifier and lifetime supplies. - buPROPion XL (WELLBUTRIN XL) 300 mg 24 hr tablet Take 1 tablet by mouth once daily. - promethazine (PHENERGAN) 25 mg tablet Take 1 tablet by mouth every 8 hours as needed for Nausea/Vomiting. - ibuprofen (MOTRIN IB) 200 mg ORAL tablet Take 200 mg by mouth. 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 Medications Discontinued During This Encounter Prescriptions - LORazepam (ATIVAN) 1 mg tablet (Discontinued) Take 1 tablet by mouth at bedtime as needed for anxiety for up to 30 days. Encounter Status:Closed by ANT TAM on 12/30/20 Normal [facility] Benzo Confirm, Urineon 12-02 7aminoclonazepam, Ur <40 Normal <40 [facility] Comment on above: Result Comment: This sample was processed past the recommended stability for 7Aminoclonazepam, which may result in a false negative result. Interpret result with caution. All other analytes were processed within the recommended stability. 2-Dhjwr-mbfpdrgvqz is the primary metabolite of clonazepam (Klonopin). Presence of 8-Fhrye-edushpixjx indicates use of clonazepam-containing drugs. Performed By: #### U BENZC ####[place] [phone] Alpha hydroxyalp, Ur <60 Normal <60 [facility] Comment on above: Result Comment: Alph a-hydroxalprazolam is the primary metabolite of alprazolam (Xanax). Presence of alpha-hydroxalprazolam indicates use of alprazolam-containing drugs. Performed By: #### U BENZC ####[address] [phone] Alpha hydroxytri, Ur <40 Normal <40 [facility] Comment on above: Result Comment: Alph a-hydroxtriazolam is the primary metabolite of triazolam (Halcion). Presence of alpha-hydroxytriazolam indicates use of triazolam-containing drugs. Performed By: #### U BENZC ####[address] [phone] Benzo Confirm, Note This test is for Medical use only. Normal [facility] Comment on above: Result Comment: This test was developed and its performance characteristics determined by [facility] [place] ( [facility]). It has not been cleared or approved by the FDA. [facility] is regulated under CLIA as qualified to perform high complexity testing. This test is used for clinical purposes. It should not be regarded as investigational or for research. Performed By: #### U BENZC ####[address] [phone] CHROMATE,URINE <10 Normal <50 [facility] Comment on above: Performed By: #### U BENZC ####[address] [phone] CREATININE,URINE 73.6 mg/dL Normal 46.8-314.5 [facility] Comment on above: Performed By: #### U BENZC ####[place] [phone] Lorazepam, Urine 368 ng/mL High <40 [facility] Comment on above: Result Comment: Pres ence of lorazepam indicates use of lorazepam-containing drugs. Performed By: #### U BENZC ####[place] [phone] NITRITES,URINE <50 Normal <51 [facility] Comment on above: Performed By: #### U BENZC ####[place] [phone] Nordiazepam, Urine <40 Normal <40 [place] Comment on above: Result Comment: [place] iazepam may arise from nordiazepam-containing drugs or by metabolism of many benzodiazepines including Medazepam (Nobrium), Clorazepate (Tranxene), Halazepam (Paxipam), Prazepam (Centrax), Chlordiazepoxide (Librium), Pinazepam (Domar), and Diazepam (Valium). Nordiazepam is metabolized to oxazepam. Performed By: #### U BENZC ####[address] [phone] Oxazepam, Urine <40 Normal <40 [facility] Comment on above: Result Comment: Oxaz epam may arise from oxazepam-containing drugs or by metabolism from many benzodiazepines including Medazepam (Nobrium), Clorazepate (Tranxene), Halazepam (Paxipam), Prazepam (Centrax), Chlordiazepoxide (Librium), Pinazepam (Domar), and Diazepam (Valium). Performed By: #### U BENZC ####[address], [place] [phone] OXIDANTS,URINE 98 mg/L Normal <200 [facility] Comment on above: Performed By: #### U BENZC ####[place] [id number] [place], [place] [phone] pH (U) 7.4 [pH] Normal 4.5-8.0 [facility] Comment on above: Performed By: #### U BENZC ####[address] [phone] QUALITY,URINE Specimen quality results within acceptable limits. Normal [facility] Comment on above: Performed By: #### U BENZC ####[address] [phone] SPEC GRAVITY,UR 1.013 Normal 1.002-1.030 [facility] Comment on above: Performed By: #### U BENZC ####[address] [phone] Temazepam, Urine <40 Normal <40 [facility] Comment on above: Result Comment: Bonnie zepam may arise from temazepam-containing drugs or by metabolism from many benzodiazepines including Medazepam (Nobrium), Clorazepate (Tranxene), Halazepam (Paxipam), Prazepam (Centrax), Chlordiazepoxide (Librium), Pinazepam (Domar), and Diazepam (Valium). Temazepam is metabolized to oxazepam. Performed By: #### U BENZC ####[address] [phone] Linda 12-02-2020 CNOV Office Visit (FAMPWS ) DRAKE DAY ([id number]) 1960 M Date Time Provider Department 12/02/20 12:00 PM ANT TAM During your visit today, we recorded the following information about you: Temperature Pulse Respiration Blood pressure 97.6 degrees 87/minute 14/minute 150/86 Weight Height 115.2 kg 1.905 m Ant Tam APRN.PACKAGE LINE RELIEF OPERATOR, DNP 12/02/2020 1:04 PM Addendum Chief Complaint Patient presents with: Establish Care HPI Drake Day is a 60 year old male who presents here today for a established physical exam. Past Medical History: Hypertension, BPH, anxiety, chronic insomnia, depression, rosacea and snoring Specialty Providers: None Presents to the [facility] as an established patient Dr. Quyen Morales III, MD This is a new patient to me. No recent urgent care visits, ER visits, or hospitalizations. Hypertension: Presents to clinic for routine yearly exam. Recently had lab work completed. Currently on hydrochlorothiazide and losartan for his blood pressure. Blood pressure elevated today at 150/86. Has been elevated more recently. Denies any headaches, lightheadedness or dizziness. No chest pain, difficulty breathing or shortness of breath. Chronic insomnia and anxiety: History of chronic benzodiazepine use. Has been on Ativan approximately 20 years for chronic insomnia and occasional intermittent anxiety. Well-controlled. No recent medication change. No adverse reactions. Recent urine tox screen was negative for benzodiazepines. 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 Repeat in 5 years (2022) - PAST SURGICAL HISTORY OF 04/27/2011 excision of SQ lesion from Rt buttock - REMOVAL OF KIDNEY STONE 04/15/2008 2 times Family History FAMILY HISTORY Problem Relation Age of Onset - No Known Problems Mother - Diabetes Father - Prostate Cancer Father - Heart Sister - No Known Problems Brother - Stroke Maternal Grandmother - Colon Cancer Paternal Grandfather - Prostate Cancer Paternal Grandfather Patient Allergies ALLERGIES Allergen Reactions - Amlodipine Swelling swelling, malaise - Doxazosin Cough - Lisinopril Cough - Penicillins Rash Current Medications Current Outpatient Medications on File Prior to Visit Medication Sig - LORazepam (ATIVAN) 1 mg tablet Take 1 tablet by mouth at bedtime as needed for anxiety for up to 30 days. - Azelaic Acid 15 % gel Apply to affected area twice daily. - clotrimazole (LOTRIMIN, CLOTRIM) 1 % cream Apply to affected area twice daily. - CPAP Initiate Auto PAP @ 5-20 cm of water with humidification. Mask (per patient preference) optional chin strap (if indicated) , filters, tubing, humidifier and lifetime supplies. - hydroCHLOROthiazide 12.5 mg capsule Take 1 capsule by mouth once daily. - buPROPion XL (WELLBUTRIN XL) 300 mg 24 hr tablet Take 1 tablet by mouth once daily. - losartan (COZAAR) 25 mg tablet Take 1 tablet by mouth once daily. - promethazine (PHENERGAN) 25 mg tablet Take 1 tablet by mouth every 8 hours as needed for Nausea/Vomiting. - ibuprofen (MOTRIN IB) 200 mg ORAL tablet Take 200 mg by mouth. No current facility-administered medications on file prior to visit. Social History Social History Tobacco Use - Smoking status: Former Smoker Packs/day: 0.30 Types: Cigarettes Quit date: 04/23/1980 Years since quittin.6 - Smokeless tobacco: Never Used Vaping Use - Vaping Use: Never used Substance Use Topics - Alcohol use: Yes Alcohol/week: 2.5 standard drinks Types: 1 Glasses of Wine (5oz) per week - Drug use: No Review of Symptoms GENERAL: No unintentional weight loss, malaise or fevers. HEENT: Negative for frequent or significant headaches No significant change in vision. NECK: Negative for lumps, pain and significant neck swelling RESPIRATORY:No dyspnea or shortness of breath CARDIOVASCULAR: Negative for chest pain, HEMATOLOGY/LYMPHOLOGY: Negative for prolonged bleeding, bruising easily or swollen nodes EXAM: BP 150/86 Pulse 87 Temp 36.4 ?C (97.6 ?F) Resp 14 Ht 190.5 cm (6' 3) Wt 115.2 kg (254 lb) SpO2 98% BMI 31.75 kg/m? General Appearance: Well appearing, alert, in no acute distress, well-hydrated, well nourished. Obese Skin: Skin color, texture, turgor normal, no suspicious rashes or lesions. Head: Normocephalic, n (more content not included)... Normal [facility] CBC and Differentialon 11-25 Abs Baso 0.06 k/uL Normal <0.11 [facility] Comment on above: Performed By: #### C BCDIF, LIPB, CMP, HBA1C, AHCV1B ####[place] [address] [address] [place], [place] [phone] Abs [place]ug[place] 0.80 k/uL Normal <0.87 [facility] Comment on above: Performed By: #### C BCDIF, LIPB, CMP, HBA1C, AHCV1B ####[place] [address] [address], [place] [phone] Abs Neut 5.79 k/uL Normal 1.45-7.50 [facility] Comment on above: Performed By: #### C BCDIF, LIPB, CMP, HBA1C, AHCV1B ####[place] [address], [place] [phone] Absolute nRBC <0.01 Normal <0.01 [facility] Comment on above: Performed By: #### C BCDIF, LIPB, CMP, HBA1C, AHCV1B ####[facility], [place] [phone] Basophils/100 WBC (Bld) 0.6 % Normal [facility] Comment on above: Performed By: #### C BCDIF, LIPB, CMP, HBA1C, AHCV1B ####[place] [address] [place], [place] [phone] DTYPE Auto Diff Normal [facility] Comment on above: Performed By: #### C BCDIF, LIPB, CMP, HBA1C, AHCV1B ####[place] [address] [address] [phone] Eosinophils (Bld) [#/Vol] 0.43 10*3/uL Normal <0.46 [facility] Comment on above: Performed By: #### C BCDIF, LIPB, CMP, HBA1C, AHCV1B ####[place] [address] [address] [phone] Eosinophils/100 WBC (Bld) 4.5 % Normal [facility] Comment on above: Performed By: #### C BCDIF, LIPB, CMP, HBA1C, AHCV1B ####[place] [address] [address] [phone] Erythrocyte distribution width (RBC) [Ratio] 13.1 % Normal 11.5-15.0 [facility] Comment on above: Performed By: #### C BCDIF, LIPB, CMP, HBA1C, AHCV1B ####[place] [address] [address] [phone] Hematocrit (Bld) [Volume fraction] 46.5 % Normal 39.0-51.0 [facility] Comment on above: Performed By: #### C BCDIF, LIPB, CMP, HBA1C, AHCV1B ####[place] [address] [address] [phone] Hemoglobin (Bld) [Mass/Vol] 15.2 g/dL Normal 13.0-17.0 [facility] Comment on above: Performed By: #### C BCDIF, LIPB, CMP, HBA1C, AHCV1B ####[place] [address] [address] [phone] Lymphocytes (Bld) [#/Vol] 2.55 10*3/uL Normal 1.00-4.00 [facility] Comment on above: Performed By: #### C BCDIF, LIPB, CMP, HBA1C, AHCV1B ####[place] [address]level[address], [place] [phone] Lymphocytes/100 WBC (Bld) 26.5 % Normal [facility] Comment on above: Performed By: #### C BCDIF, LIPB, CMP, HBA1C, AHCV1B ####[place] [address] [place], [place] [phone] MCH 29.7 pG Normal 26.0-34.0 [facility] Comment on above: Performed By: #### C BCDIF, LIPB, CMP, HBA1C, AHCV1B ####[place] [address] [place], [place] [phone] MCHC (RBC) [Mass/Vol] 32.7 g/dL Normal 30.5-36.0 [facility] Comment on above: Performed By: #### C BCDIF, LIPB, CMP, HBA1C, AHCV1B ####[place] [address] [address] [place], [place] [phone] MCV (RBC) [Entitic vol] 91.0 fL Normal 80.0-100.0 [facility] Comment on above: Performed By: #### C BCDIF, LIPB, CMP, HBA1C, AHCV1B ####[place] [address] [place], [place] [phone] Monocytes/100 WBC (Bld) 8.3 % Normal [facility] Comment on above: Performed By: #### C BCDIF, LIPB, CMP, HBA1C, AHCV1B ####[place] [address] [address] [place], [place] [phone] Neutrophils/100 WBC (Bld) 60.1 % Normal [facility] Comment on above: Performed By: #### C BCDIF, LIPB, CMP, HBA1C, AHCV1B ####[place] [address] [address] [place], [place] [phone] NRBCs 0.0 /100 WBC Normal 0 [facility] Comment on above: Performed By: #### C BCDIF, LIPB, CMP, HBA1C, AHCV1B ####[place] [address] [place], [place] [phone] Platelet mean volume (Bld) [Entitic vol] 9.9 fL Normal 9.0-12.7 [facility] Comment on above: Performed By: #### C BCDIF, LIPB, CMP, HBA1C, AHCV1B ####[place] [address] [address] [place], [place] [phone] Platelets (Bld) [#/Vol] 307 10*3/uL Normal 150-400 [facility] Comment on above: Performed By: #### C BCDIF, LIPB, CMP, HBA1C, AHCV1B ####[place] [address] [place], [place] [phone] RBC (Bld) [#/Vol] 5.11 10*6/uL Normal 4.20-6.00 [facility] Comment on above: Performed By: #### C BCDIF, LIPB, CMP, HBA1C, AHCV1B ####[place] [address] [address], [place] [phone] WBC (Bld) [#/Vol] 9.63 10*3/uL Normal 3.70-11.00 [facility] Comment on above: Performed By: #### C BCDIF, LIPB, CMP, HBA1C, AHCV1B ####[place] [address] [address], [place] [phone] Comp Metabolic Panelon 11-25 Albumin [Mass/Vol] 4.2 g/dL Normal 3.9-4.9 [place] Comment on above: Performed By: #### C BCDIF, LIPB, CMP, HBA1C, AHCV1B ####[place] [address] [place], [place] [phone] ALP [Catalytic activity/Vol] 70 U/L Normal 38-113 [facility] Comment on above: Performed By: #### C BCDIF, LIPB, CMP, HBA1C, AHCV1B ####[place] [address] [place], [place] [phone] ALT [Catalytic activity/Vol] 25 U/L Normal 10-54 [facility] Comment on above: Performed By: #### C BCDIF, LIPB, CMP, HBA1C, AHCV1B ####[address], [place] [phone] Anion gap [Moles/Vol] 11 mmol/L Normal 9-18 [facility] Comment on above: Performed By: #### C BCDIF, LIPB, CMP, HBA1C, AHCV1B ####[address] [phone] AST [Catalytic activity/Vol] 27 U/L Normal 14-40 [facility] Comment on above: Performed By: #### C BCDIF, LIPB, CMP, HBA1C, AHCV1B ####[address] [phone] Bilirubin [Mass/Vol] 0.2 mg/dL Normal 0.2-1.3 [facility] Comment on above: Performed By: #### C BCDIF, LIPB, CMP, HBA1C, AHCV1B ####[facility], [place] [phone] Calcium [Mass/Vol] 9.7 mg/dL Normal 8.5-10.2 [place] Comment on above: Performed By: #### C BCDIF, LIPB, CMP, HBA1C, AHCV1B ####[place] [address], [place] [phone] Chloride [Moles/Vol] 104 mmol/L Normal 97-105 [facility] Comment on above: Performed By: #### C BCDIF, LIPB, CMP, HBA1C, AHCV1B ####[facility] [place], [place] [phone] CO2 [Moles/Vol] 25 mmol/L Normal 22-30 [facility] Comment on above: Performed By: #### C BCDIF, LIPB, CMP, HBA1C, AHCV1B ####[place] [address], [place] [phone] Creatinine [Mass/Vol] 0.88 mg/dL Normal 0.73-1.22 [facility] Comment on above: Performed By: #### C BCDIF, LIPB, CMP, HBA1C, AHCV1B ####[place] [address], [place] [phone] eGFR- Amer. >60 Normal [place] Comment on above: Performed By: #### C BCDIF, LIPB, CMP, HBA1C, AHCV1B ####[place] [address] [place], [place] [phone] eGFR-All Other Races >60 Normal [facility] Comment on above: Result Comment: eGFR (Estimated GFR) Units of measure: mL/min/1.73 meters squared eGFR is derived from the reexpressed MDRD Study equation using the following parameters: serum creatinine, age, gender and race. The creatinine assay has been calibrated to be traceable to IDMS. An eGFR <60 mL/min/1.73m2 for >3 months is consistent with chronic kidney disease. Refer to KDOQI guidelines for clinical interpretation. In patients with unstable renal function, e.g. those with acute kidney injury, the eGFR may not accurately reflect actual GFR. Performed By: #### C BCDIF, LIPB, CMP, HBA1C, AHCV1B ####[place] [address], [place] [phone] Glucose [Mass/Vol] 81 mg/dL Normal 74-99 [place] Comment on above: Result Comment: The [place] Diabetes Association (ADA) provides guidance for cutoff values for fasting glucose and random glucose. The ADA defines fasting as no caloric intake for at least 8 hours. Fasting plasma glucose results between 100 to 125 mg/dL indicate increased risk for diabetes (prediabetes). Fasting plasma glucose results greater than or equal to 126 mg/dL meet the criteria for diagnosis of diabetes. In the absence of unequivocal hyperglycemia, results should be confirmed by repeat testing. In a patient with classic symptoms of hyperglycemia or hyperglycemic crisis, random plasma glucose results greater than or equal to 200 mg/dL meet the criteria for diagnosis of diabetes. Reference: Standards of Medical Care in Diabetes 2016, [place] Diabetes Association. Diabetes Care. 2016.39(Suppl 1). Performed By: #### C BCDIF, LIPB, CMP, HBA1C, AHCV1B ####[address] [phone] Potassium [Moles/Vol] 4.0 mmol/L Normal 3.7-5.1 [facility] Comment on above: Performed By: #### C BCDIF, LIPB, CMP, HBA1C, AHCV1B ####[place] [address], [place] [phone] Protein [Mass/Vol] 6.9 g/dL Normal 6.3-8.0 [place] Comment on above: Performed By: #### C BCDIF, LIPB, CMP, HBA1C, AHCV1B ####[address] [place], [place] [phone] Sodium [Moles/Vol] 140 mmol/L Normal 136-144 [place] Comment on above: Performed By: #### C BCDIF, LIPB, CMP, HBA1C, AHCV1B ####[place] [address], [place] [phone] Urea nitrogen [Mass/Vol] 16 mg/dL Normal 9-24 [facility] Comment on above: Performed By: #### C BCDIF, LIPB, CMP, HBA1C, AHCV1B ####[address] [place], [place] [phone] Hemoglobin A1con 08-13-2021 Glucose [Mass/Vol] 111 mg/dL Normal [place] Comment on above: Result Comment: eAG: (Estimated average glucose) is a calculated value from HgbA1c and is telemarketing sales representative of the average blood glucose level in the last 2-3 month period. Performed By: #### C BCDIF, LIPB, CMP, HBA1C, AHCV1B ####[address] [phone] HbA1c (Bld) [Mass fraction] 5.5 % Normal 4.3-5.6 [facility] Comment on above: Result Comment: Amer [place] Diabetes Association guidelines indicate that patients with HgbA1c in the range 5.7-6.4% are at increased risk for development of diabetes, and intervention by lifestyle modification may be beneficial. HgbA1c greater or equal to 6.5% is considered diagnostic of diabetes. Performed By: #### C BCDIF, LIPB, CMP, HBA1C, AHCV1B ####[address] [phone] Hep C Ab IA w/Confon 021 Hepatitis C Ab IA Negative Normal Negative [facility] Comment on above: Performed By: #### C BCDIF, LIPB, CMP, HBA1C, AHCV1B ####[place] [address] [place], [place] [phone] Lipid Panel, [place] 021 Cholesterol [Mass/Vol] 175 mg/dL Normal <200 [facility] Comment on above: Result Comment: <200 mg/dL, Desirable 200-239 mg/dL, Borderline high >239 mg/dL, High Performed By: #### C BCDIF, LIPB, CMP, HBA1C, AHCV1B ####[address] [phone] Cholesterol in HDL [Mass/Vol] 51 mg/dL Normal >39 [facility] Comment on above: Result Comment: 40-5 9 mg/dL, Acceptable >59 mg/dL, High: Negative risk factor for coronary heart disease <40 mg/dL, Low: Positive risk factor for coronary heart disease Performed By: #### C BCDIF, LIPB, CMP, HBA1C, AHCV1B ####[facility] [place], [place] [phone] Cholesterol in LDL [Mass/Vol] 112 mg/dL High <100 [facility] Comment on above: Result Comment: <100 mg/dL, Optimal 100-129 mg/dL, Near optimal/above optimal 130-159 mg/dL, Borderline high 160-189 mg/dL, High >189 mg/dL, Very high Secondary prevention optimal LDL Cholesterol levels are recommended to be < 70 mg/dL Performed By: #### C BCDIF, LIPB, CMP, HBA1C, AHCV1B ####[place] [address] [place], [place] [phone] Fasting Time 12 hrs Normal [facility] Comment on above: Performed By: #### C BCDIF, LIPB, CMP, HBA1C, AHCV1B ####[place] [address] [place], [place] [phone] LDL:HDL Ratio 2.20 Normal <2.54 [facility] Comment on above: Result Comment: Refe renjamel: 1. National Cholesterol Education Program ATP III Guideline At-A-Glance Quick Desk Reference: National Heart, Lung, and Blood [place]. National Institutes of Health. 2001: NIH Publication No. 01-3305. 2. An International Atherosclerosis Society position paper: global recommendations for the management of dyslipidemia: executive summary, Atherosclerosis. 2014: 232(2):410-413. Performed By: #### C BCDIF, LIPB, CMP, HBA1C, AHCV1B ####[place] [address] [place], [place] [phone] Non HDL Cholesterol 124 mg/dL Normal <130 [facility] Comment on above: Result Comment: <130 mg/dL, Optimal 130-159 mg/dL, Near optimal/above optimal 160-189 mg/dL, Borderline high 190-219 mg/dL, High >219 mg/dL, Very high Secondary prevention optimal non HDL Cholesterol levels are recommended to be < 100 mg/dL Performed By: #### C BCDIF, LIPB, CMP, HBA1C, AHCV1B ####[place] [phone] TC:HDL Ratio 3.43 Normal <5.10 [facility] Comment on above: Performed By: #### C BCDIF, LIPB, CMP, HBA1C, AHCV1B ####[place] [phone] Triglyceride [Mass/Vol] 60 mg/dL Normal <150 [facility] Comment on above: Result Comment: <150 mg/dL, Normal 150-199 mg/dL, Borderline high 200-499 mg/dL, High >499 mg/dL, Very high Performed By: #### C BCDIF, LIPB, CMP, HBA1C, AHCV1B ####[place] [phone] VLDL Cholesterol 12 mg/dL Normal <30 [facility] Comment on above: Performed By: #### C BCDIF, LIPB, CMP, HBA1C, AHCV1B ####[place] [phone] Toxicology Screen,Uron 11-25 Amphetamines, Urine Negative Normal Negative [facility] Comment on above: Result Comment: Cuto ff threshold at 1000 ng/mL. Performed By: #### U TOX2 ####[place] [phone] Barbiturates, Urine Negative Normal Negative [facility] Comment on above: Result Comment: Cuto ff threshold at 200 ng/mL. Performed By: #### U TOX2 ####[place] [phone] Benzodiazepines, Ur Negative Normal Negative [facility] Comment on above: Result Comment: Cuto ff threshold at 200 ng/mL. Performed By: #### U TOX2 ####[facility] [address] [place] [phone] Cannabinoids, Urine Negative Normal Negative [facility] Comment on above: Result Comment: Cuto ff threshold at 50 ng/mL. Performed By: #### U TOX2 ####[facility] [place] [phone] Cocaine, Urine Negative Normal Negative [facility] Comment on above: Result Comment: Cuto ff threshold at 300 ng/mL. Performed By: #### U TOX2 ####[place] [address] [place] [phone] Ethanol, Urine <11 Normal <11 [facility] Comment on above: Performed By: #### U TOX2 ####[place] [address] [place] [phone] Opiates, Urine Negative Normal Negative [facility] Comment on above: Result Comment: Cuto ff threshold at 300 ng/mL. Performed By: #### U TOX2 ####[place] [phone] Oxycodone, Urine Negative Normal Negative [facility] Comment on above: Result Comment: Cuto ff threshold at 100 ng/mL. Comment: Immunoassay screen only. Cross reactivity with other substances can occur with immunoassay screening. Detection of any drug(s) in this urine toxicology panel is presumptive only. These tests are for medical purposes only and should not be used for compliance monitoring, legal, or forensic use. Samples should be within normal physiological conditions (e.g. pH). This assay does not include adulteration/specimen validity testing. In clinical settings, confirmatory testing is at the practitioner's discretion [1]. If clinically indicated, confirmation by high specificity, quantitative methodology, which includes adulteration/specimen validity testing, may be requested on the same specimen through Client Services ([phone]) if contacted within 48 hours of initial testing. [1]Substance Abuse and Mental Health Services Administration (2012). Clinical Drug Testing in Primary Care Technical Assistance Publication Series 32. Department of Health and Human Services, [place], p.10. Performed By: #### U TOX2 ####[facility] [address] [place], [place] [phone] Phencyclidine, Urine Negative Normal Negative [facility] Comment on above: Result Comment: Cuto ff threshold at 25 ng/mL. Performed By: #### U TOX2 ####[facility] [place], [place] [phone] [facility] CNPN Telephone (FAMPWS) DRAKE DAY ([id number]) 1960 Date Time Provider Department 11/07/20 [facility] During your visit today, we recorded the following information about you: Zeus Aguilar RN 11/07/2020 8:17 AM Signed Patient asking for refill on ativan. Scheduled appt for 11-09-20 w/Braxton Tam. Patient wants provider to know he has to have this medication. He cannot sleep without it. Reports Dr. Morales has tried him on everything and this is the only thing that works. Last ov with pcp: 02-22-20 [facility]: 12-[facility]-20 with Braxton Tam. Ant Tam APRN.CNP, DNP 11/07/2020 8:47 AM Signed Team -- Is the patient on Trazadone also? Both trazodone and lorazepam are in his medication list as active medications. Please confirm Ant aTm APRN.CNP, DNP Holly N Nenadal Cma 11/07/2020 12:45 PM Signed Patient is notified of all information and verbalizes understanding Patient is not taking trazodone it did not help him sleep. He would like a refill on Lorazepam to get him through until his December 02 appointment. Ant Tam APRN.NATALY SCHUSTER 11/07/2020 1:14 PM Signed Team, Please make sure the patient completes his fasting lab work prior to his appointment. PDMP website checked and validated 11/07/2020 All prescriptions have been APPROPRIATELY filled. No suspicious activity was identified. The following approved medication requests have been transmitted electronically. Signed Prescriptions Disp Refills LORazepam (ATIVAN) 1 mg tablet 30 tablet 0 Sig: Take 1 tablet by mouth at bedtime as needed for anxiety for up to 30 days. JOSE F Class: C-IV BELEN: No Authorizing Provider: ANT TAM APRN.CNP, DNP Holly N Nenadal [facility] 11/07/2020 1:16 PM Signed Patient is notified of all information and verbalizes understanding Allergies As of Date: 11/07/2020 Noted Allergy Reaction AMLODIPINE 02/01/2020 7 - Swelling Comments: swelling, malaise DOXAZOSIN 11/10/2019 3 - Cough LISINOPRIL 11/10/2019 3 - Cough PENICILLINS 05/14/2017 2 - Rash Date Reviewed: 02/22/2020 Reviewed by: Morelia ([facility]) HECTOR Mcginnis - Fully Assessed Reason for Visit: Medication Question [1478] Visit Diagnoses: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 - Azelaic Acid 15 % gel Apply to affected area twice daily. - clotrimazole (LOTRIMIN, CLOTRIM) 1 % cream Apply to affected area twice daily. - CPAP Initiate Auto PAP @ 5-20 cm of water with humidification. Mask (per patient preference) optional chin strap (if indicated) , filters, tubing, humidifier and lifetime supplies. - hydroCHLOROthiazide 12.5 mg capsule Take 1 capsule by mouth once daily. - buPROPion XL (WELLBUTRIN XL) 300 mg 24 hr tablet Take 1 tablet by mouth once daily. - losartan (COZAAR) 25 mg tablet Take 1 tablet by mouth once daily. - promethazine (PHENERGAN) 25 mg tablet Take 1 tablet by mouth every 8 hours as needed for Nausea/Vomiting. - ibuprofen (MOTRIN IB) 200 mg ORAL tablet Take 200 mg by mouth. 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 Medications Discontinued During This Encounter Prescriptions - traZODone (DESYREL) 50 mg tablet (Discontinued) Take 1 tablet by mouth daily at bedtime. - LORazepam (ATIVAN) 1 mg tablet (Discontinued) Take 1 tablet by mouth at bedtime as needed for anxiety for up to 30 days. Encounter Status:Closed by RAMESH ARAGON CMA on 11/07/20 [facility] OBSOLETEon 10-06-2020 OBSOLETE Refill (FAMPWS) DRAKE DAY ([id number]) 1960 M Date Time Provider Department 10/06/20 ANT TAM During your visit today, we recorded the following information about you: Stormy Vivar RN 10/06/2020 8:08 AM Signed Patient has been identified by name and date of : Yes Patient phones for refill(s): Pending Prescriptions Disp Refills LORAZEPAM 1 MG TABLET 30 tablet 0 Sig: Take 1 tablet by mouth at bedtime as needed for anxiety for up to 30 days. JOSE F Class: C-IV BELEN: No Date of last office visit in primary care: 02/22/2020; Future Appt. 12/02/2020 (Establishing care with Ant Tam) Last 2 Encounter Wt Readings: Date: Wt: 02/12/2020 120.2 kg (265 lb) 11/10/2019 118.4 kg (261 lb) Previous labs/tests for medication: Blood Pressure: BUN (mg/dL) Date Value 05/22/2019 18 Sodium (mmol/L) Date Value 05/22/2019 142 Last 1 Encounter BP Readings: Date: BP: 02/12/2020 132/76 Liver Function: ALT (U/L) Date Value 05/22/2019 15 AST (U/L) Date Value 05/22/2019 17 Please advise. Thank you. MIHAELA Mitchell, CARE INFORMATION ASSOCIATE.PACKAGE LINE RELIEF OPERATOR, [place] 10/06/2020 1:13 PM Signed Perform fasting lab work prior to appt. You can schedule an appointment for lab work at our front office associate. Please fast 12 hours prior to blood work. You may have water, medications and black coffee during that fasting time. Lab hours are from 7:30 - 5:30 pm - and from 8:00 am -12:00pm Saturday. I refilled his lorazepam. ASSESSMENT/PLAN: 1. Special screening examination for viral disease - ICD9: V73.99, ICD10: Z11.59 (primary diagnosis) - HEP C AB IA W/CONF SCRN 2. Insomnia secondary to anxiety - ICD9: 300.00, 327.02, ICD10: F41.9, F51.05 - LORAZEPAM 1 MG TABLET 3. Chronic prescription benzodiazepine use - ICD9: V58.69, ICD10: Z79.899 - LORAZEPAM 1 MG TABLET - TOX SCREEN ROUT UR 4. Benign hypertension - ICD9: 401.1, ICD10: I10 - COMP METABOLIC PANEL - CBC + DIFF - LIPID PANEL BASIC - HGB A1C Ant Tam APRN.PACKAGE LINE RELIEF OPERATOR, DNP [facility] Celestina Gonzalez LPN 10/13/2020 9:18 AM Signed Spoke with pt and information listed below given. Pt verbalizes understanding. Lab apt booked. 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, F51.05] Chronic prescription benzodiazepine use [Z79.899] Benign hypertension [I10] Order(s):LORazepam (ATIVAN) 1 mg tabletTake 1 tablet by mouth at bedtime as needed for anxiety for up to 30 days.Disp: 30 tabletRfl: 0 HEP C AB IA W/CONF SCRN [AWFDRQ0N] Order #: [id number] FUTURE TOX SCREEN ROUT UR [SQUTOX2] Order #: [id number] FUTURE COMP METABOLIC PANEL [SQCMP] Order #: [id number] FUTURE CBC + DIFF [SQCBCDIF] Order #: [id number] FUTURE LIPID PANEL BASIC [SQLIPB] Order #: [id number] FUTURE HGB A1C [ZTFKJ2R] Order #: [id number] FUTURE Prescriptions as of 10/06/2020 Sig: LORAZEPAM 1 MG TABLET Take 1 tablet by mouth at bed* TRAZODONE 50 MG TABLET Take 1 tablet by mouth daily * AZELAIC ACID 15 % TOPICAL GEL Apply to affected area twice * CLOTRIMAZOLE 1 % TOPICAL CREAM Apply to affected area twice * CPAP Initiate Auto PAP @ 5-20 cm o* HYDROCHLOROTHIAZIDE 12.5 MG C* Take 1 capsule by mouth once * BUPROPION XL 300 MG 24 HR TAB Take 1 tablet by mouth once d* LOSARTAN 25 MG TABLET Take 1 tablet by mouth once d* PROMETHAZINE 25 MG TABLET Take 1 tablet by mouth every * * IBUPROFEN 200 MG TABLET Take 200 mg by mouth. 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 Medications Discontinued During This Encounter Prescriptions - LORazepam (ATIVAN) 1 mg tablet (Discontinued) Take 1 tablet by mouth at bedtime as needed for Anxiety for up to 30 days. Encounter Sta (more content not included)... Normal [facility] OBSOLETEon 09-05-2020 OBSOLETE Refill (FAMPWS) DRAKE DAY ([id number]) 1960 M Date Time Provider Department 09/05/20 QUYEN MORALES III During your visit today, we recorded the following information about you: Luanne Fritz [facility] 09/05/2020 8:13 AM Signed Patient has been identified by name and date of : Yes Pending Prescriptions Disp Refills LORAZEPAM 1 MG TABLET 30 tablet 0 Sig: Take 1 tablet by mouth at bedtime as needed for Anxiety for up to 30 days. JOSE F Class: C-IV BELEN: No RX INSTRUCTIONS: Patient requesting a call when RX is approved and sent to the pharmacy. Please call patient at: [phone]. Luanne Fritz [facility] Edelmira Poon Ma 09/05/2020 8:19 AM Signed Last office visit 02/22/2020 Follow up not scheduled at this time Last refilled 07/28/2020 #30 0 refills Edelmira Tam APRN.CNP, DNP 09/05/2020 9:30 PM Signed PDMP website checked and validated 09/05/2020 All prescriptions have been APPROPRIATELY filled. No suspicious activity was identified. The following approved medication requests have been transmitted electronically. Pending Prescriptions Disp Refills LORAZEPAM 1 MG TABLET 30 tablet 0 Sig: Take 1 tablet by mouth at bedtime as needed for Anxiety for up to 30 days. 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, F51.05] Order(s):LORazepam (ATIVAN) 1 mg tabletTake 1 tablet by mouth at bedtime as needed for Anxiety for up to 30 days.Disp: 30 tabletRfl: 0 Prescriptions as of 09/05/2020 Sig: LORAZEPAM 1 MG TABLET Take 1 tablet by mouth at bed* TRAZODONE 50 MG TABLET Take 1 tablet by mouth daily * AZELAIC ACID 15 % TOPICAL GEL Apply to affected area twice * CLOTRIMAZOLE 1 % TOPICAL CREAM Apply to affected area twice * CPAP Initiate Auto PAP @ 5-20 cm o* HYDROCHLOROTHIAZIDE 12.5 MG C* Take 1 capsule by mouth once * BUPROPION XL 300 MG 24 HR TAB Take 1 tablet by mouth once d* LOSARTAN 25 MG TABLET Take 1 tablet by mouth once d* PROMETHAZINE 25 MG TABLET Take 1 tablet by mouth every * * IBUPROFEN 200 MG TABLET Take 200 mg by mouth. 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 Medications Discontinued During This Encounter Prescriptions - LORazepam (ATIVAN) 1 mg tablet (Discontinued) Take 1 tablet by mouth at bedtime as needed for Anxiety for up to 30 days. - LORazepam (ATIVAN) 1 mg tablet (Discontinued) Take 1 tablet by mouth at bedtime as needed for Anxiety for up to 30 days. Do not start before August 27, 2020. Encounter Status:Closed by ANT TAM on 09/05/20 [facility] Radha 07-19-2020 [facility] Telephone (INTMWS) SHAYDRAKE RAMOS ([id number]) 1960 M Date Time Provider Department 07/19/20 QUYEN MORALES III During your visit today, we recorded the following information about you: Ryanne Sara Marita MÉNDEZ 07/19/2020 1:50 PM Signed Patient had Sleep Study done 2017, spoke to Dr. Morales, he went down to 82%, he told Patient the Order would be faxed to [facility]. [facility] is needing more info. Sleep Study, they only received insurance info. Please notify Patient once this has been done. Ryanne Mcginnis CMA, MA 07/19/2020 2:18 PM Signed Sleep study has been faxed. Patient has been notified, voiced understanding. Morelia Mcginnis CMA Allergies As of Date: 07/19/2020 Noted Allergy Reaction AMLODIPINE 02/01/2020 7 - Swelling Comments: swelling, malaise DOXAZOSIN 11/10/2019 3 - Cough LISINOPRIL 11/10/2019 3 - Cough PENICILLINS 05/14/2017 2 - Rash Date Reviewed: 02/22/2020 Reviewed by: Morelia Roblero) HECTOR Mcginnis - Fully Assessed Reason for Visit: Orders [681] Prescriptions as of 07/19/2020 Sig: CPAP Initiate Auto PAP @ 5-20 cm o* LORAZEPAM 1 MG TABLET Take 1 tablet by mouth at bed* AZELAIC ACID 15 % TOPICAL GEL Apply to affected area twice * HYDROCHLOROTHIAZIDE 12.5 MG C* Take 1 capsule by mouth once * BUPROPION XL 300 MG 24 HR TAB Take 1 tablet by mouth once d* LOSARTAN 25 MG TABLET Take 1 tablet by mouth once d* PROMETHAZINE 25 MG TABLET Take 1 tablet by mouth every * CLOTRIMAZOLE 1 % TOPICAL CREAM Apply to affected area twice * * IBUPROFEN 200 MG TABLET Take 200 mg by mouth. 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, F51.05] 12/24/2017 HUMA (obstructive sleep apnea) [G47.33] 02/20/2018 Chronic insomnia [F51.04] 02/20/2018 uBzz [L71.9] 10/10/2018 Encounter Status:Closed by MORELIA MCGINNIS C[facility] (FAMPWS[facility] DRAKE DAY ([id number]) 1960 M Date Time Provider Department 07/14/20 UQYEN MORALES III During your visit today, we recorded the following information about you: Babita Dietz LPN 07/14/2020 10:30 AM Signed Pt states when he got out of the shower this morning he lost track of everything, he was foggy AND couldn't remember things, this lasted about 15-20 minutes. Pt states he is still feeling a little foggy but it is better than this am. Denies any other symptoms at all. States he felt fine when he went to bed last pm Babita Morales III MD 07/14/2020 1:16 PM Signed called patient: he feels fine now but earlier this AM when he got out of the shower. He has not slept well for the last 3 nights. He takes ativan 1 mg , melatonin, and ibuprofen at bedtime. And he takes a lot of coffee in AM in order to wake up. Also notes that he has throat tightness upon awakening. Home sleep study on 03/21/2018 documented dx of HUMA with minimal spo2 82%. Imp; delirium from ativan, melatonin, ibuprofen HUMA with chronically poor sleep anxiety with insomnia Plan auto-pap reduce meds at night--may be able to begin weaning ativan in future Quyen Morales III MD Allergies As of Date: 07/14/2020 Noted Allergy Reaction AMLODIPINE 02/01/2020 7 - Swelling Comments: swelling, malaise DOXAZOSIN 11/10/2019 3 - Cough LISINOPRIL 11/10/2019 3 - Cough PENICILLINS 05/14/2017 2 - Rash Date Reviewed: 02/22/2020 Reviewed by: Morelia ([facility]) HECTOR Mcginnis - Fully Assessed Reason for Visit: Memory Loss [66] Primary Visit Diagnosis:HUMA (obstructive sleep apnea) [G47.33] Order(s):CPAP DEVICE, WITH HUMIDIFIER [[id number]] Order #: [id number] CPAPInitiate Auto PAP @ 5-20 cm of water with humidification. Mask (per patient preference) optional chin strap (if indicated) , filters, tubing, humidifier and lifetime supplies.Disp: 1 DeviceRfl: 0 Prescriptions as of 07/14/2020 Sig: CPAP Initiate Auto PAP @ 5-20 cm o* LORAZEPAM 1 MG TABLET Take 1 tablet by mouth at bed* AZELAIC ACID 15 % TOPICAL GEL Apply to affected area twice * HYDROCHLOROTHIAZIDE 12.5 MG C* Take 1 capsule by mouth once * BUPROPION XL 300 MG 24 HR TAB Take 1 tablet by mouth once d* LOSARTAN 25 MG TABLET Take 1 tablet by mouth once d* PROMETHAZINE 25 MG TABLET Take 1 tablet by mouth every * CLOTRIMAZOLE 1 % TOPICAL CREAM Apply to affected area twice * * IBUPROFEN 200 MG TABLET Take 200 mg by mouth. 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 Mask (per patient preference) optional chin strap (if indicated) , filters, tubing, humidifier and lifetime supplies. Encounter Status:Closed by QUYEN MORALES III, MD on 07/14/20 [facility] 06-10-2020 [facility] Telephone (FAMPWS) DRAKE DAY ([id number]) 1960 Date Time Provider Department 06/10/20 QUYEN MORALES III [facility] During your visit today, we recorded the following information about you: Quyen Morales III MD 06/10/2020 12:38 PM Signed Staff, Please call patient with the following advice for treatment of his rosacea: he may discontinue metronidazole gel and try the followin. sunscreen with dimethicone or cyclomethicone base (not alcohol base), SPF 30 or greater to reduce trigger for flare ups. 2. may apply a thin layer of green tinted cosmetic facial powder ( or daughter may provide assistance) 3. azelaic acid gel 15% apply BID . I am not sure how much this might cost. Give progress report in 2 mos, earlier as needed. May need to consider laser or light treatments with a presales consultant. JAE Nieves MD, PHARMACY CASHIER, PHARMACY CASHIER 06/10/2020 12:40 PM Signed Left message to return call. Michael Mills RN 06/10/2020 1:05 PM Signed Pt called, verified by name and birthdate. Patient notified of provider's instructions. Patient verbalizes understanding. Michael Mills RN Allergies As of Date: 06/10/2020 Noted Allergy Reaction AMLODIPINE 02/01/2020 7 - Swelling Comments: swelling, malaise DOXAZOSIN 11/10/2019 3 - Cough LISINOPRIL 11/10/2019 3 - Cough PENICILLINS 05/14/2017 2 - Rash Date Reviewed: 02/22/2020 Reviewed by: Morelia ([facility]) HECTOR Mcginnis - Fully Assessed Reason for Visit: Med Management [[id number]] Primary Visit Diagnosis:Rosacea [L71.9] Order(s):Azelaic Acid 15 % gelApply to affected area twice daily.Disp: 50 gRfl: 3 Prescriptions as of 06/10/2020 Sig: AZELAIC ACID 15 % TOPICAL GEL Apply to affected area twice * LORAZEPAM 1 MG TABLET Take 1 tablet by mouth at bed* HYDROCHLOROTHIAZIDE 12.5 MG C* Take 1 capsule by mouth once * BUPROPION XL 300 MG 24 HR TAB Take 1 tablet by mouth once d* LORAZEPAM 1 MG TABLET Take 1 tablet by mouth at bed* LORAZEPAM 1 MG TABLET Take 1 tablet by mouth at bed* LOSARTAN 25 MG TABLET Take 1 tablet by mouth once d* PROMETHAZINE 25 MG TABLET Take 1 tablet by mouth every * CLOTRIMAZOLE 1 % TOPICAL CREAM Apply to affected area twice * * IBUPROFEN 200 MG TABLET Take 200 mg by mouth. 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 Medications Discontinued During This Encounter Prescriptions - metroNIDAZOLE 1 % gel (Discontinued) Apply 1 application to affected area once daily. Location: face Encounter Status:Closed by MICHAEL MILLS RN on 06/10/20 Normal [facility] Encounters Encounter Date Encounter Type Care Provider Facility Start: 09-15-2024 ambulatory Buddy Posadas Facility: [facility] Start: 09-08-2024 End: 09-08-[address] Buddy Posadas DO Work Phone: [facility] Work Phone: Start: 09-08-2024 End: 09-08-[address] Xena Adrian MD -Laboratory [place] Work Phone: Start: 09-08-2024 End: 09-08-2024 ambulatory Xena Adrian Facility:[facility] Start: 08-07-2022 End: 08-07-2022 ambulatory [facility] Work Phone: Start: 08-07-2022 End: 08-07-2022 Patient encounter procedure [facility]-Laboratory, [place] [facility] Start: 11-18-2021 Refill Ant VALDES RN.MARIELY, NATALY Work Phone: [facility] [place] Comment on above: Refill Request Procedures Date Procedure Procedure Detail Performing Clinician Start: 09-08-2024 Prostate specific an tigen measurement Dr. Buddy Posadas DO Work Phone: Comment on above: This test was perfor med using the [employer] [employer] tPSA method. Measured values of a patient sample can vary depending on the testing procedure used. PSA values determined on patient samples by different testing procedures cannot be used interchangeably. If there is a change in PSA assays while monitoring therapy, sequential testing should be performed to confirm baseline values. Start: 09-08-2024 X-ray of chest, PA a nd lateral views Dr. Buddy Posadas DO Work Phone: Start: 01-19-2019 Adult depression scr eening assessment Ant Tam APRN.MARIELY, NATALY Work Phone: Start: 05-23-2017 Colonoscopy Ant hatch APRN.MARIELYNATALY Work Phone: Plan of Treatment Date Care Activity Detail Author Start: 11-25-2025 LIPID SCREEN LIPID SCREEN [facility] Start: 11-26-2023 DIABETES SCREEN DIABETES SCREEN [facility] Start: 11-27-2022 PROSTATE CANCER SCRE ENING DISCUSSION PROSTATE CANCER SCREENING DISCUSSION [facility] Start: 05-23-2022 Colonoscopy COLONOSCOPY [facility] Start: 05-23-2022 COLORECTAL CANCER SCREENING COLORECTAL CANCER SCREENING [facility] Start: 12-14-2021 Influenza vaccination INFLUENZA (#1) [facility] Start: 12-02-2021 ANNUAL PCP TEAM CHECKER IN NICOLE DISEASE VISIT ANNUAL PCP TEAM CHRONIC DISEASE VISIT [facility] Start: 01-20-2020 Adult depression scr eening assessment DEPRESSION SCREENING [facility] Start: 2010 SHINGRIX VACCINE (1 of 2) SHINGRIX V ACCINE (1 of 2) [facility] Start: 2005 COLOGUARD (FIT-DNA) COLOGUARD (FIT-D NA) [facility] Start: [address] COLONOGRAPHY [facility] Start: 2005 FECAL OCCULT BLOOD FECAL OCCULT BLOO D [facility] Start: 2005 SIGMOIDOSCOPY SIGMOIDOSCOPY [facility] Start: 1979 Urine microalbumin profile DTAP,TDAP ,TD (1 - Tdap) [facility] Start: 1978 BP CONTROLLED (<130/80) BP CONTROLLE D (<130/80) [facility] Start: 1960 COVID-19 VACCINE (#1) COVID-19 VACCI NE (#1) [facility] Immunizations Immunization Date Immunization Notes Care Provider Erick oneal 01-08-2020 influenza, seasonal, injectable Ant Tam APRN.NATALY SCHUSTER Work Phone: [facility] 01-12-2019 influenza, seasonal, injectable Ant Tam APRN.CNP, DNP Work Phone: [facility] 01-10-2018 influenza, seasonal, injectable Ant Tam APRN.NATALY SCHUSTER Work Phone: [facility] 02-25-2017 influenza, seasonal, injectable Ant Tam APRN.NATALY SCHUSTER Work Phone: [facility] 01-13-2011 influenza virus vacc ine, unspecified formulation Ant Tam APRN.PACKAGE LINE RELIEF OPERATOR, DNP Work Phone: [facility] Payers Date Payer Category Payer Self-pay [id number] 2018 Private Health Insurance [employer] A ETNA CHOICE POS II [id number] 2018-Present [phone] [address] [place] [address] POS [id number] 2006 Private Health Insurance [id number] Unknown [id number] Unknown [id number] Social History Date Type Detail Facility Start: 04-23-2011 Tobacco smoking stat [facility] Ex-smoker [facility] End: 04-23-1980 History of tobacco use Current smoker [facility] End: 04-23-1980 History of tobacco use Cigarette Smoker [facility] Start: 04-23-2011 End: 12-02-2020 Cigarettes smoked current (pack per day) - Reported 0.3 [facility] Start: 04-23-2011 Tobacco use and exposure Smokeless tobacco non-user [facility] Start: 12-02-2020 Alcohol intake Current drinke r of alcohol (finding) [facility] Start: 1960 Sex Assigned At Not on file [facility] Start: 01-28-2016 [facility] Start: 1960 Sex Assigned At Male [facility] Start: 01-28-2016 [facility]finding[facility] Radiology Diagnostic study note 09-09-2024 Note Date & Type Note Facility 09-09-2024 Radiology Diagnostic study note [facility] Imaging Services [address] [place] [address] Chest PA and Lateral MR#: [id number] Acct: [id number] Name: DRAKE DAY Rep #: [id number] : 1960 M 64 From: Malvin Rodrigues MD PCP: Dr. Buddy Posadas DO Status: REG CLI Study:Chest PA and Lateral Date of Exam: 09/08/24 Exam# [id number] Ordering Dr: Padma Adrian MD PROCEDURE: CHEST PA AND LATERAL 09/08/2024 REASON FOR EXAM: RIGHT SIDE RIB PAIN TECHNIQUE: Frontal and lateral views of the chest. COMPARISON: None available FINDINGS: The lungs are clear. Pulmonary vascularity appears within limits. No pleural effusion. The cardiac and mediastinal contours appear within limits. Visualized osseous structures appear within limits. RAD/Chest PA and Lateral IMPRESSION: No evidence of acute disease. Reading Location: [id number] CC: Dr. Xena Adrian MD; Dr. Buddy Posadas DO ~ Medical Collections Representative: Signed [facility] Note 11-20-2021 Telephone Encounter - Libby Al LPN - 11/20/2021 12:57 PM EDTTelephone Encounter - Debby Rodarte PA-C - 11/20/2021 9:10 AM EDT Note Date & Type Note Facility 11-20-2021 Miscellaneous Notes Formattin g of this note might be different from the original. Spoke with pt. States he has not been with the [facility] for about [address] Cris Posadas. Asked to have refill at [facility] cancelled. Advised pt would cancel rx and update pcp in our system. Called and cancelled rx, spoke with [place] in the Pharmacy and pcp updated as well. Libby Al LPN 1 refill sent. Patient needs to contact office to set up est care visit. Debby Rodarte PA-C Patient needs scheduled to re-establish. Patient has been identified by name and date of : Yes Pending Prescriptions Disp Refills HYDROCHLOROTHIAZIDE 25 MG TABLET 90 tablet 3 Sig: take 1 tablet by mouth once daily BELEN: Yes RX INSTRUCTIONS: Patient aware RX will be sent to pharmacy. No need to notify patient. Mery Stock MA Jessika: 11/2020 No appointment scheduled Last refill: 11/2020 documented in this encounter [facility] Progress note 03-31-2021 Note Date & Type Note Facility 03-31-2021 Note HNO ID: [id number] Author: Avtar Sampson Population Health Navigator Service: ? Author Type: ? Type: Progress Notes Filed: 03/31/2021 1:29 PM Note Text: POPULATION HEALTH NAVIGATION OUTREACH Action/FYI Updated pcp field Contact made with patient or family member? NO Pt identified by name and : NO Outreach Outcome/Action PCP field updated Reason for Outreach Attribution: Provider Off-boarding Payer: Payor: AETNA / Plan: AET[employer] CHOICE POS II / Product Type: POS / Care Gap Reviewed:: Reminder: Reminder note to check Health Maintenance for items below Health Maintenance items due: COVID-19 VACCINE(1) Never done BP CONTROLLED (<130/80) Never done DTAP,TDAP,TD(1 - Tdap) Never done SHINGRIX VACCINE(1 of 2) Never done DEPRESSION SCREENING due on 01/20/2020 INFLUENZA(1) due on 12/14/2020 Advanced Directives Completed: Have you ever planned for future healthcare decisions with a power of city attorney, living will, or advance directives? No. Please bring a copy to your next appointment or email to Referrals: N/A Message Sent to Practice: NO Navigation Signature: Avtar Sampson Population Health Navigator March 31, 2021 1:28 PM [facility] Clinical Note 03-31-2021 Note Date & Type Note Facility 03-31-2021 Note Patient Outreach (TRACY BOLAÑOS) SHAYDRAKE Montero ([id number]) 1960 M Date Time Provider Department 03/31/21 AVTAR SAMPSON During your visit today, we recorded the following information about you: Avtar Sampson Population Health Navigator 03/31/2021 1:29 PM Signed POPULATION HEALTH NAVIGATION OUTREACH Action/FYI Updated pcp field Contact made with patient or family member? NO Pt identified by name and : NO Outreach Outcome/Action PCP field updated Reason for Outreach Attribution: Provider Off-boarding Payer: Payor: AETNA / Plan: AET[employer] CHOICE POS II / Product Type: POS / Care Gap Reviewed:: Reminder: Reminder note to check Health Maintenance for items below Health Maintenance items due: COVID-19 VACCINE(1) Never done BP CONTROLLED (<130/80) Never done DTAP,TDAP,TD(1 - Tdap) Never done SHINGRIX VACCINE(1 of 2) Never done DEPRESSION SCREENING due on 01/20/2020 INFLUENZA(1) due on 12/14/2020 Advanced Directives Completed: Have you ever planned for future healthcare decisions with a power of city attorney, living will, or advance directives? No. Please bring a copy to your next appointment or email to [email or web address] Referrals: N/A Message Sent to Practice: NO Navigation Signature: Avtar Sampson Population Health Navigator March 31, 2021 1:28 PM Allergies As of Date: 03/31/2021 Noted Allergy Reaction AMLODIPINE 02/01/2020 7 - Swelling Comments: swelling, malaise DOXAZOSIN 11/10/2019 3 - Cough LISINOPRIL 11/10/2019 3 - Cough PENICILLINS 05/14/2017 2 - Rash Date Reviewed: 12/02/2020 Reviewed by: Ant Tam APRN.PACKAGE LINE RELIEF OPERATOR, DNP - Fully Assessed Reason for Visit: Population Health Navigation Outreach [[id number]] Cmt: Offboarding Prescriptions as of 03/31/2021 - LORazepam (ATIVAN) 1 mg tablet Take 1 tablet by mouth at bedtime as needed for anxiety for up to 30 days. - losartan (COZAAR) 25 mg tablet Take 1 tablet by mouth once daily. - hydroCHLOROthiazide (HYDRODIURIL, ESIDRIX) 25 mg tablet Take 1 tablet by mouth once daily. - Azelaic Acid 15 % gel Apply to affected area twice daily. - clotrimazole (LOTRIMIN, CLOTRIM) 1 % cream Apply to affected area twice daily. - CPAP Initiate Auto PAP @ 5-20 cm of water with humidification. Mask (per patient preference) optional chin strap (if indicated) , filters, tubing, humidifier and lifetime supplies. - buPROPion XL (WELLBUTRIN XL) 300 mg 24 hr tablet Take 1 tablet by mouth once daily. - promethazine (PHENERGAN) 25 mg tablet Take 1 tablet by mouth every 8 hours as needed for Nausea/Vomiting. - ibuprofen (MOTRIN IB) 200 mg ORAL tablet Take 200 mg by mouth. 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 Author Type: Nurse Practitioner Type: Progress Notes Filed: 12/02/2020 1:04 PM Note Text: Chief Complaint Patient presents with: Establish Care HPI Drake Day is a 60 year old male who presents here today for a established physical exam. Past Medical History: Hypertension, BPH, anxiety, chronic insomnia, depression, rosacea and snoring Specialty Providers: None Pres[facility] to [facility] as an established patient Dr. Quyen Morales III, MD This is a new patient to me. No recent urgent care visits, ER visits, or hospitalizations. Hypertension: Presents to clinic for routine yearly exam. Recently had lab work completed. Currently on hydrochlorothiazide and losartan for his blood pressure. Blood pressure elevated today at 150/86. Has been elevated more recently. Denies any headaches, lightheadedness or dizziness. No chest pain, difficulty breathing or shortness of breath. Chronic insomnia and anxiety: History of chronic benzodiazepine use. Has been on Ativan approximately 20 years for chronic insomnia and occasional intermittent anxiety. Well-controlled. No recent medication change. No adverse reactions. Recent urine tox screen was negative for benzodiazepines. 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 Repeat in 5 years (2022) - PAST SURGICAL HISTORY OF 04/27/2011 excision of SQ lesion from Rt buttock - REMOVAL OF KIDNEY STONE 04/15/2008 2 times Family History FAMILY HISTORY Problem Relation Age of Onset - No Known Problems Mother - Diabetes Father - Prostate Cancer Father - Heart Sister - No Known Problems Brother - Stroke Maternal Grandmother - Colon Cancer Paternal Grandfather - Prostate Cancer Paternal Grandfather Patient Allergies ALLERGIES Allergen Reactions - Amlodipine Swelling swelling, malaise - Doxazosin Cough - Lisinopril Cough - Penicillins Rash Current Medications Current Outpatient Medications on File Prior to Visit Medication Sig - LORazepam (ATIVAN) 1 mg tablet Take 1 tablet by mouth at bedtime as needed for anxiety for up to 30 days. - Azelaic Acid 15 % gel Apply to affected area twice daily. - clotrimazole (LOTRIMIN, CLOTRIM) 1 % cream Apply to affected area twice daily. - CPAP Initiate Auto PAP @ 5-20 cm of water with humidification. Mask (per patient preference) optional chin strap (if indicated) , filters, tubing, humidifier and lifetime supplies. - hydroCHLOROthiazide 12.5 mg capsule Take 1 capsule by mouth once daily. - buPROPion XL (WELLBUTRIN XL) 300 mg 24 hr tablet Take 1 tablet by mouth once daily. - losartan (COZAAR) 25 mg tablet Take 1 tablet by mouth once daily. - promethazine (PHENERGAN) 25 mg tablet Take 1 tablet by mouth every 8 hours as needed for Nausea/Vomiting. - ibuprofen (MOTRIN IB) 200 mg ORAL tablet Take 200 mg by mouth. No current facility-administered medications on file prior to visit. Social History Social History Tobacco Use - Smoking status: Former Smoker Packs/day: 0.30 Types: Cigarettes Quit date: 04/23/1980 Years since quittin.6 - Smokeless tobacco: Never Used Vaping Use - Vaping Use: Never used Substance Use Topics - Alcohol use: Yes Alcohol/week: 2.5 standard drinks Types: 1 Glasses of Wine (5oz) per week - Drug use: No Review of Symptoms GENERAL: No unintentional weight loss, malaise or fevers. HEENT: Negative for frequent or significant headaches No significant change in vision. NECK: Negative for lumps, pain and significant neck swelling RESPIRATORY:No dyspnea or shortness of breath CARDIOVASCULAR: Negative for chest pain, HEMATOLOGY/LYMPHOLOGY: Negative for prolonged bleeding, bruising easily or swollen nodes EXAM: BP 150/86 Pulse 87 Temp 36.4 ?C (97.6 ?F) Resp 14 Ht 190.5 cm (6' 3) Wt 115.2 kg (254 lb) SpO2 98% BMI 31.75 kg/m? General Appearance: Well appearing, alert, in no acute distress, well-hydrated, well nourished. Obese Skin: Skin color, texture, turgor normal, no suspicious rashes or lesions. Head: Normocephalic, no masses, lesions, tenderness or abnormalities. Eyes: Anicteric sclera. Neck: Supple, no adenopathy; thyroid symmetric, normal size, no bruits. Lymph Nodes: No cervical lymphadenopathy, No supraclavicular lymphadenopathy Lungs: Lungs clear to auscultation. No wheezing, rhonchi, rales. Heart: (more content not included)... [facility] Evaluation note Note Date & Type Note Facility Evaluation note Diagnosis Benign hypertension Essential hypertension, benign documented in this encounter [facility] Evaluation note Note Date & Type Note Facility Evaluation note No assessment information availa ble [facility] Work Phone: Reason for referral (narrative) Note Date & Type Note Facility Reason for referral (narrative) No reason for referral information available [facility] Work Phone: Summary Purpose Family History No Family History Records FoundNo Family History Records Found Advance Directives No Advanced Directives Records FoundNo Advanced Directives Records Found Chief Complaint and Reason for Visit Chief Complaint Admit Date September 08, 2024 12:32 pm Additional Source Comments (unrecognized sect ion and content) No Status Records FoundNo Status Records Found INFORMATION SOURCE (unrecogn ized section and content) DATE CREATED AUTHOR 05/18/2021 [facility] DATE CREATED AUTHOR AUTHOR'S ORGANIZ ATION 09/13/2024 [facility] Source Comments (unrecognize d section and content) In the event this informatio n is protected by the Federal Confidentiality of Alcohol and Drug Abuse Patient Records regulations: The Federal rules restrict any use of the information to criminally investigate or prosecute any alcohol or drug abuse patient.[facility] Reason for Visit (unrecogniz ed section and content) Reason Comments Refill Request Care Teams (unrecognized sec tion and content) Manager Pulmonary Relationship Specialty Start Date End Date Ant Tam, JOCELYN.PACKAGE LINE RELIEF OPERATOR, DNP [id number] [place] [address] PCP - General Family Practice 03/31/21 11/19/21 Buddy Posadas DO [address] [address] PCP - General Family Practice 11/20/21 Team Status: Active Member Role Status Dates Dr. Montrell Rosario MD Family Provider Active Dr. Buddy Posadas DO Primary Care Provider Active Team Status: Inactive Member Role Status Dates Dr. Buddy Posadas DO Primary Care Prov ider, Attending Provider, Referring Provider Active Team Status: Active Member Role Status Dates Dr. Buddy Posadas DO Primary Care Provider Active Team Status: Inactive Member Role Status Dates Dr. Buddy Posadas DO Primary Care Provider Active Start: September 08, 2024 End: September 08, 2024 Dr. Xena Adrian MD Attending Provider Active Start: September 08, 2024 End: September 08, 2024 Dr. Xena Adrian MD Referring Provider Active Start: September 08, 2024 End: September 08, 2024 Goals (unrecognized section and content) Goals may be documented in a n alternate sectionGoals may be documented in an alternate section FOR RECORDS PERTAINING TO PATIENTS WHO ARE OR HAVE BEEN ENROLLED IN A CHEMICAL DEPENDENCY/SUBSTANCEABUSE PROGRAM, SOME INFORMATION MAY BE OMITTED. This clinical summary was aggregated from multiple sources. Caution should be exercised in using it in the provision of clinical care. This summary normalizes information from multiple sources, and as a consequence, information in this document may materially change the coding, format and clinical context of patient data. In addition, data may be omitted in some cases. CLINICAL DECISIONS SHOULD BE BASED ON THE PRIMARY CLINICAL RECORDS. [employer] [facility]. provides no warranty or guarantee of the accuracy or completeness of information in this document.
== END | disposition home or self-care (01) ==
LOC: US 10:20
PROVIDERS: PCP Family Medicine; Referring Provider Family Medicine; Visit Provider Family Medicine
DX: R10.11 Right upper quadrant pain (principal)
CPT/HCPCS: 76705

== ENCOUNTER 2025-01-28 10:02 | Emergency (ER) | payer OTHER, SELFPAY ==
[2025-01-28 10:03] VITALS: BP 183/90; PULSE 84; RESP 16; TEMP 36.6; O2SAT 98; BMI 33.7
--- NOTE | 2025-01-28 10:34 | EKG12_ITS ---
Test Reason : CONFUSED Blood Pressure : */* mmHG Vent. Rate : 84 BPM Atrial Rate : 84 BPM P-R Int : 172 ms QRS Dur : 106 ms QT Int : 398 ms P-R-T Axes : 19 -69 29 degrees QTcB Int : 470 ms Normal sinus rhythm Left anterior fascicular block Possible Lateral infarct , age undetermined Inferior infarct , age undetermined Abnormal ECG Confirmed by KALYAN PULIDO, ELIN ([id number]), assignment desk editor PUJA RIVERA ([id number]) on 01/29/2025 8:32:08 AM Referred By: Confirmed By: ELIN IBGGS MD
--- NOTE | 2025-01-28 10:45 | CT_ITS ---
PROCEDURE: BRAIN/HEAD WITHOUT CONTRAST 01/28/2025 REASON FOR EXAM: CONFUSION, RESOLVED TECHNIQUE: Procedure Code: CTBR Modality: CT Procedure: BRAIN/HEAD WITHOUT CONTRAST Coronal and Sagittal reconstruction series were provided. One or more dose reduction techniques were used (e.g., Automated exposure control, adjustment of the mA and/or kV according to patient size, use of iterative reconstruction technique. RADIATION DOSE SUMMARY: CTDlvol: 44.99 mGy DLP: 863.6 mGycm COMPARISON: None FINDINGS: Brain: Within normal limits for age CSF Spaces: Mild generalized cerebral atrophy Sinuses/Mastoids: Clear at visualized levels Bones: Unremarkable CT/Brain/Head without Contrast IMPRESSION: Mild cerebral atrophy. No acute abnormality is seen. Reading Location: [place] [address]
--- NOTE | 2025-01-28 10:45 | EX.ED.DYSGE1 ---
HPI History of Present Illness Chief Complaint: Confusion Narrative Narrative: Chief complaint and HPI: 64-year-old male with past medical history of shoulder tendinitis, HTN, anxiety presents for evaluation of resolved confusion. Patient states that his shoulder tendinitis has been acting up over the past several days. He started taking an old prescription of Flexeril that was prescribed in 2019. States he started this 3 days ago. Took it last night along with his Ativan. States that this morning he woke up and started to have intermittent confusion. States that he was forgetful of the events of the morning. States this has since resolved. in the room states that the patient is back to baseline. He states that he has a history of confusion/resolved forgetfulness in the past in which it was attribute it to multiple/mixing of medication. The event was similar to this. He denies any fever, chills, shortness of breath, chest pain, abdominal pain, nausea, vomiting, dysuria headache, difficulty speaking, vision changes, weakness, numbness/tingling. Review of systems: See HPI Medications: As listed on the chart Allergies: As listed on the chart PFSH: Per chart Vital signs: As listed on the chart. Reviewed. Physical exam: Gen: A&O x3, NAD Head: Normocephalic, atraumatic Eyes: No sclera icterus, conjunctiva clear, PERRL, EOMI ENT: Moist mucous membranes, No facial asymmetry Neck: Trachea midline, full range of motion CV: RRR, no murmurs, no peripheral edema Resp: Lungs CTA BL, no w/r/c GI: Abd soft, non-distended, non-tender, no r/r/g Musc: Full ROM, no deformity, strength +5/5 in all extremities, no pronator drift, no ataxia Skin: Warm, dry, intact Neuro: Alert, oriented, grossly intact, sensation intact, no focal deficits Psych: Cooperative, appropriate mood and affect [facility] Home Medications ?Medication ?Instructions ?Recorded ?Last Taken ?Type bupropion HCl 300 mg 24 hr tablet, 300 mg PO DAILY 01/28/16 01/28/25 History extended release lorazepam 1 mg tablet 1 mg PO QHS 01/28/16 01/27/25 History amlodipine 5 mg tablet 5 mg PO DAILY 01/28/25 01/28/25 History azelaic acid 15 % topical gel 1 applic topical BID 01/28/25 01/28/25 History losartan 50 mg tablet 50 mg PO DAILY 01/28/25 01/28/25 History Allergy/AdvReac Type Severity Reaction Status Date / Time Penicillins Allergy Rash Verified 01/28/25 10:08 Social History Smoking Status: Never smoker EXAM Physical Exam Const Vital Signs: 01/28/25 10:03 01/28/25 12:03 01/28/25 12:25 Temperature 98 F 98.2 F Temperature Source Oral Pulse Rate 84 89 89 Respiratory Rate 16 16 Blood Pressure 183/90 H 120/110 H 120/110 H Blood Pressure Mean 121 113 113 Pulse Ox 98 100 100 Oxygen Delivery Method Room Air MDM MDM MDM Narrative Medical decision making narrative: 64-year-old male with past medical history of shoulder tendinitis, HTN, anxiety presents for evaluation of resolved confusion. Patient states that his shoulder tendinitis has been acting up over the past several days. He started taking an old prescription of Flexeril that was prescribed in 2019. States he started this 3 days ago. Took it last night along with his Ativan. States that this morning he woke up and started to have intermittent confusion. States that he was forgetful of the events of the morning. States this has since resolved. in the room states that the patient is back to baseline. He states that he has a history of confusion/resolved forgetfulness in the past in which it was attribute it to multiple/mixing of medication. The event was similar to this. Asymptomatic at this time. Suspect likely medication side effect however cannot rule out electrolyte abnormality, dehydration, UTI, suspect less likely arrhythmia, ACS, [place] pathology. Laboratory workup ordered including CT head. CBC without leukocytosis or anemia. CMP unremarkable. Magnesium unremarkable. Troponin unremarkable. UA negative for UTI. CT of the brain shows mild cerebral atrophy. No acute abnormality. On reevaluation, patient has remained asymptomatic. He is not confused. He is ambulated in the ED without difficulty. I do think his symptoms are secondary to the Ativan makes with old Flexeril. Patient was educated not to take all the medication that is not currently prescribed. He confirmed understanding. He asked me to dispense of the old prescription. Follow-up with PCP. Return precautions explained. Him and his confirmed understand the plan. Patient able to discharge home. EKG: Interpreted by me/EM physician: EKG shows normal sinus rhythm with left anterior fascicular block. I do not have a previous EKG to compare to. Nonspecific ST changes. No acute ST elevation. Diagnostic: Interpreted by me/EM physician: Chest x-ray without pneumonia, effusion, cardiomegaly, pneumothorax. Radiology in agreement. Impression: 1. Confusion, resolved 2. Medication adverse effect Lab Data Labs: Laboratory Results - last 24 hr 01/28/25 01/28/25 10:47 10:55 WBC 9.7 RBC 5.23 Hgb 15.9 Hct 47.2 MCV 90.2 MCH 30.4 MCHC 33.7 RDW Std Deviation 44.2 H RDW Coeff of Ronnie 13.3 Plt Count 266 MPV 8.9 Immature Gran % (Auto) 0.500 Neut % (Auto) 69.5 Lymph % (Auto) 17.3 L Sully % (Auto) 8.1 Eos % (Auto) 3.9 Baso % (Auto) 0.7 Absolute Neuts (auto) 6.7 Absolute Lymphs (auto) 1.67 Nucleated RBC % 0 Sodium 141 Potassium 4.1 Chloride 105 Carbon Dioxide 26.2 Anion Gap 10 BUN 14 Creatinine 0.80 Estim Creat Clear Calc 128.04 Est GFR (MDRD) Non-Af 99 BUN/Creatinine Ratio 17.7 Glucose 100 H Calcium 9.4 Magnesium 2.2 Total Bilirubin 0.47 AST 19 ALT 31 Alkaline Phosphatase 78 Troponin T High Sens 14 Total Protein 6.9 Albumin 4.4 Globulin 2.5 Albumin/Globulin Ratio 1.8 Urine Color Yellow Urine Clarity Clear Urine pH 6.5 Ur Specific Lucinda 1.010 Urine Protein Negative Urine Glucose (UA) Normal Urine Ketones Negative Urine Occult Blood Negative Urine Nitrite Negative Urine Bilirubin Negative Urine Urobilinogen Normal Ur Leukocyte Esterase Negative Urine RBC 0 SEEN Urine WBC 0 SEEN Ur Squamous Epith Cells 0 SEEN Urine Bacteria 0 SEEN Urine Mucus 0 SEEN Radiography Diagnostic Testing: Clinical Impression(s) from Imaging Studies Brain CT 01/28/25 10:45 IMPRESSION: Mild cerebral atrophy. No acute abnormality is seen. Reading Location: [place] [address] Chest X-Ray 01/28/25 10:50 IMPRESSION: NO ACUTE FINDINGS. Reading Location: [place] [address] Discharge Plan Triage Chief Complaint: Confusion ED Provider: Regulo Onofre Dx/Rx/DC Orders Clinical Impression: Drug side effects Instructions: ED Confusion Prescriptions: No Action lorazepam 1 MG tablet 1 mg PO QHS bupropion HCl 300 MG tablet extended release 24 hr 300 mg PO DAILY losartan 50 mg tablet 50 mg PO DAILY amlodipine 5 mg tablet 5 mg PO DAILY azelaic acid 15 % gel 1 applic topical BID Primary Care Provider: Buddy Posadas Referrals: Buddy Posadas DO [Primary Care Provider, Family Practice] - 3-5 Days Activity Restrictions/Additional Instructions: Follow-up with primary care physician. Return back to ED if symptoms change or worsen. Do not take oral medication that is currently not prescribed. Print Language: Togolese Disposition Disposition: Home, Self Care Discharge Date/Time: 01/28/25 12:28
--- NOTE | 2025-01-28 10:50 | RAD_ITS ---
PROCEDURE: CHEST PA AND LATERAL 01/28/2025 REASON FOR EXAM: CONFUSION TECHNIQUE: Procedure Code: RADCXR Modality: DX Procedure: CHEST PA AND LATERAL COMPARISON: None FINDINGS: Hardware: None Heart: The heart size is normal. Mediastinum: The mediastinal contour is unremarkable. Lungs: The lungs are clear. Bones: Degenerative changes are identified within the thoracic spine. RAD/Chest PA and Lateral IMPRESSION: NO ACUTE FINDINGS. Reading Location: [place] [address]
[2025-01-28 10:58] LABS: Hematocrit 47.2 % (40-54); Hemoglobin 15.9 g/dL (13.0-16.5); Immature Granulocytes Count 0.050 X10^3/uL (0.0-0.0); Mean Corp Hgb Conc 33.7 g/dL (32-36); Mean Corpuscular Volume 90.2 fL (80-94); Mean Platelet Vol. 8.9 fl (6.2-12.0); NRBC Flagged by Analyzer 0 % (0-5); Platelet Count 266 K/mm3 (150-450); RBC Distribution Width CV 13.3 % (11.6-14.6); RBC Distribution Width SD 44.2 fl (35.1-43.9); Red Blood Count 5.23 M/mm3 (4.6-6.2); White Blood Count 9.7 K/mm3 (4.4-11.0)
[2025-01-28 11:03] LABS: Mucous, Urine 0 SEEN /hpf (<or=2+); Red Blood Cells-Urine 0 SEEN /hpf (0-5); Squamous Epithelial Cells - UA 0 SEEN /hpf (0-5)
[2025-01-28 11:06] LABS: Color, Urine Yellow (Yellow); Glucose, Dipstick Normal (Normal); Ketone-Dipstick Negative (Negative); Leukocyte Esterase-Dipstick Negative /ul (Negative); Nitrite-Dipstick Negative (Negative); Occult Blood-Urine Negative /ul (Negative); Protein-Dipstick Negative (Negative); Specific Gravity, Urine 1.010 (1.002-1.030); Urine Bilirubin Dipstick Negative (Negative)
[2025-01-28 11:14] LABS: AST(SGOT) 19 U/L (<=37); Alanine Aminotransfer ALT/SGPT 31 U/L (<=46); Albumin, Serum 4.4 g/dL (3.4-4.8); Alkaline Phosphatase 78 U/L (40-129); Anion Gap 10 (5-15); BUN 14 mg/dL (4-19); BUN/Creat Ratio 17.7 RATIO (10-20); Calcium,Total 9.4 mg/dL (7.6-11.0); Carbon Dioxide 26.2 mmol/L (21.0-32.0); Chloride 105 mmol/L (98-108); Estimated Creatinine Clearance 128.04 ml/min (50-250); Globulin 2.5 g/dL (2.2-4.2); Glucose 100 mg/dL (70-99); Magnesium 2.2 mg/dL (1.5-2.2); Potassium 4.1 mmol/L (3.3-5.1)
[2025-01-28 11:37] LABS: Troponin T High Sensitivity 14 ng/L (<=22)
[2025-01-28 12:03] VITALS: BP 120/110; PULSE 89; RESP 16; O2SAT 100
[2025-01-28 12:25] VITALS: BP 120/110; PULSE 89; RESP 16; TEMP 36.8; O2SAT 100
== END 2025-01-28 12:28 | disposition home or self-care (01) ==
PROVIDERS: Emergency Provider Surgery; PCP Family Medicine; Visit Provider Surgery
DX: R41.0 Disorientation, unspecified (principal); T48.1X5A Adverse effect of skeletal muscle relaxants [neuromuscular blocking agents], initial encounter; I44.4 Left anterior fascicular block; G31.9 Degenerative disease of nervous system, unspecified; I10 Essential (primary) hypertension; M77.9 Enthesopathy, unspecified; F41.9 Anxiety disorder, unspecified; Z79.899 Other long term (current) drug therapy
CPT/HCPCS: 70450; 71046; 80053; 81001; 83735; 84484; 85025; 93005; 99284; A4216